=== PATIENT | male | born 1955 | race Caucasian/White ===

== ENCOUNTER 2017-10-22 16:59 | Emergency (ER) | payer SELFPAY ==
[~2017-10-22] VITALS: Ht 177.8 cm; Wt 90.7 kg
[~2017-10-22 16:59] MED LIST: AMLO10TA2 PO; ATOR80TA PO; CLOP75TA15 PO; ISOS30TA6 PO; LISI-607 PO; METO100T14 PO; PANT20TA2 PO; RANO500T3 PO
[2017-10-22] MEDS ORDERED: ALBUTEROL FS 2.5 MG/3 ML VIAL.NEB NEB ONE (17:30)
[2017-10-22] MEDS ORDERED: IPRATROPIUM NEB FS 0.5 MG/2.5 ML AMPUL.NEB NEB ONE (17:30)
[2017-10-22] MEDS ORDERED: ALBUTEROL FS 2.5 MG/3 ML VIAL.NEB ONE ×2 (17:33→17:50)
[2017-10-22] MEDS ORDERED: IPRATROPIUM NEB FS 0.5 MG/2.5 ML AMPUL.NEB ONE (17:33)
[2017-10-22 17:36] LABS: BASOPHILS # (AUTO) 0.2 /CMM (0.0-0.2); EOSINOPHILS # (AUTO) 0.1 /CMM (0.0-0.7); EOSINOPHILS % (AUTO) 0.7 % (0.0-6.0); MONOCYTES # (AUTO) 1.7 /CMM (0.1-1.30); MONOCYTES % (AUTO) 10.1 % (2.0-12.0)
[2017-10-22 17:38] LABS: BASOPHILS % (AUTO) 1.5 % (0.0-2.0); HEMATOCRIT 47 % (39-51); LYMPHOCYTES # (AUTO) 2.4 /CMM (0.8-4.8); LYMPHOCYTES % (AUTO) 14.7 % (20.0-44.0); MEAN CORPUSCULAR HEMOGLOBIN 29 PG (26.0-33.0); MEAN CORPUSCULAR HGB CONC 34 g/dl (31.0-36.0); MEAN CORPUSCULAR VOLUME 85 fL (80-96); NEUTROPHILS # (AUTO) 12.2 /CMM (1.8-8.9); PLATELET COUNT (AUTO) 281 /CMM (150-450); RDW COEFFICIENT OF VARIATION 13.2 (11.5-15.0); RED BLOOD CELL COUNT(AUTO) 5.52 MIL/uL (4.5-6.0); WHITE BLOOD COUNT (AUTO) 16.6 K/uL (4.3-11.0)
[2017-10-22 17:48] LABS: CALCIUM, SERUM 9.1 mg/dL (8.5-10.1); CARBON DIOXIDE 24 mmol/L (21-32); CHLORIDE 100 mmol/L (98-107); GLUCOSE 106 mg/dL (74-106); POTASSIUM 3.6 mmol/L (3.5-5.1); SODIUM SERUM 136 mmol/L (136-145); UREA NITROGEN, BLOOD 12 mg/dL (7-18)
[2017-10-22 17:53] LABS: TROPONIN I < 0.017 ng/mL (0.00-0.056)
[2017-10-22 18:00] LABS: B-TYPE NATRIURETIC PEPTIDE 121 PG/ML (0-125)
[2017-10-22] MEDS ORDERED: ALBUTEROL FS 2.5 MG/0.5 ML VIAL.NEB NEB ONE (18:00)
[2017-10-22 19:19] VITALS: BP 138/82
--- NOTE | 2017-10-22 19:25 | NUR ---
Patient discharged to home in stable condition. Written and verbal after care instructions given. Patient verbalizes understanding of instruction. Prescription given.
== END 2017-10-22 19:25 | disposition home or self-care (01) ==
LOC: ER 17:00
DX: J06.9 Acute upper respiratory infection, unspecified (principal); J45.909 Unspecified asthma, uncomplicated; I10 Essential (primary) hypertension; I25.10 Atherosclerotic heart disease of native coronary artery without angina pectoris; I25.2 Old myocardial infarction; F17.200 Nicotine dependence, unspecified, uncomplicated; J44.9 Chronic obstructive pulmonary disease, unspecified; Z87.19 Personal history of other diseases of the digestive system; Z95.5 Presence of coronary angioplasty implant and graft
CPT/HCPCS: 36415; 71045; 80048; 83880; 84484; 85025; 94640 ×2; 99285; 99406; A4606; Z7610

== ENCOUNTER 2019-07-20 12:32 | Inpatient (IN) | payer OTHER ==
[~2019-07-20] VITALS: Ht 177.8 cm; Wt 77.1 kg
[~2019-07-20 12:32] MED LIST changes: -AMLO10TA2 PO; +AMLO10TA7 PO
--- NOTE | 2019-07-20 12:52 | NUR ---
sudden SOB this morning; BB son to ER today
--- NOTE | 2019-07-20 13:18 | NUR ---
seen by BERT crews; labs drawn and sent to labs
[2019-07-20] MEDS ORDERED: methylPREDNISolone SOD SUCC 125 MG/2ML VIAL ONE (13:23)
--- NOTE | 2019-07-20 13:26 | NUR ---
solumedrol IVP given as ordered
[2019-07-20] MEDS ORDERED: ALBUTEROL FS 2.5 MG/3 ML VIAL.NEB ONE (13:29)
[2019-07-20] MEDS ORDERED: IPRATROPIUM NEB FS 0.5 MG/2.5 ML AMPUL.NEB ONE (13:29)
[2019-07-20] MEDS ORDERED: methylPREDNISolone SOD SUCC 125 MG/2ML VIAL IV ONE (13:30)
[2019-07-20] MEDS ORDERED: IPRATROPIUM NEB FS 0.5 MG/2.5 ML AMPUL.NEB NEB ONE (13:30)
[2019-07-20] MEDS ORDERED: ALBUTEROL FS 2.5 MG/3 ML VIAL.NEB CONTNEB ONE (13:30)
[2019-07-20 13:42] LABS: BASOPHILS # (AUTO) 0.1 /CMM (0.0-0.2); BASOPHILS % (AUTO) 1.3 % (0.0-2.0); HEMATOCRIT 46 % (39-51); HEMOGLOBIN 15.5 g/dL (13.5-17.5); LYMPHOCYTES # (AUTO) 2.1 /CMM (0.8-4.8); LYMPHOCYTES % (AUTO) 27.1 % (20.0-44.0); MEAN CORPUSCULAR HGB CONC 34 g/dl (31.0-36.0); MEAN CORPUSCULAR VOLUME 87 fL (80-96); MONOCYTES # (AUTO) 0.6 /CMM (0.1-1.30); MONOCYTES % (AUTO) 7.6 % (2.0-12.0); NEUTROPHILS # (AUTO) 4.8 /CMM (1.8-8.9); PLATELET COUNT (AUTO) 181 /CMM (150-450); RED BLOOD CELL COUNT(AUTO) 5.21 MIL/uL (4.5-6.0); WHITE BLOOD COUNT (AUTO) 7.8 K/uL (4.3-11.0)
[2019-07-20 13:55] LABS: CARBON DIOXIDE 25 mmol/L (21-32); CHLORIDE 101 mmol/L (98-107); CREATININE 0.9 mg/dL (0.6-1.3); GLUCOSE 101 mg/dL (74-106); POTASSIUM 3.9 mmol/L (3.5-5.1); SODIUM SERUM 136 mmol/L (136-145); UREA NITROGEN, BLOOD 13 mg/dL (7-18)
[2019-07-20 14:07] LABS: ALANINE AMINOTRANSFERASE 58 U/L (12-78); ALBUMIN 3.3 g/dL (3.4-5.0); ALKALINE PHOSPHATASE 95 U/L (46-116); ASPARTATE AMINOTRANSFERASE 27 U/L (15-37); B-TYPE NATRIURETIC PEPTIDE 90 PG/ML (0-125); BILIRUBIN,DIRECT 0.1 mg/dL (0.0-0.2); BILIRUBIN,TOTAL 0.5 mg/dL (0.2-1.0); TOTAL PROTEIN, SERUM 7.5 g/dL (6.4-8.2)
[2019-07-20] MEDS ORDERED: NITROGLYCERIN 0.4 MG/TAB BOTTLE ONE (14:20)
[2019-07-20] MEDS ORDERED: NITROGLYCERIN 0.4 MG/TAB BOTTLE SL ONE ×2 (14:30→15:30)
--- NOTE | 2019-07-20 15:17 | NUR ---
2nd sublingual nitro stat medication given
[2019-07-20] MEDS: ASPIRIN 325 MG TABLET PO ONE ×2 (16:00→16:28)
[2019-07-20] MEDS ORDERED: ASPIRIN 325 MG TABLET ONE (16:22)
[2019-07-20 16:26] LABS: ABG BASE EXCESS -1.3 mmol/L; ABG OXYGEN SATURATION 44.6 % (92.0-98.5); ABG PCO2 46.5 mmHg (35.0-45.0); ABG PH 7.345 (7.350-7.450); ABG PO2 25.7 mmHg (75.0-100.0); COHb 1.9 % (0.5-1.5); MetHb 0.3 % (0.0-1.5); O2Hb 43.6 % (94.0-97.0); SITE, ABG Right Brachial; VENT MODE, BG NC 1L
[2019-07-20] MEDS ORDERED: MAG HYDROX/AL HYDROX/SIMETH 30 ML UDC PO ONE (17:00)
[2019-07-20] MEDS ORDERED: LIDOCAINE VISCOUS 2% UD 15 ML UDC MM ONE (17:00)
[2019-07-20] MEDS ORDERED: LIDOCAINE VISCOUS 2% UD 15 ML UDC ONE (17:06)
[2019-07-20] MEDS ORDERED: MAG HYDROX/AL HYDROX/SIMETH 30 ML UDC ONE (17:06)
--- NOTE | 2019-07-20 18:53 | NUR ---
NURSING SUP GAVE BED 313-2.
--- NOTE | 2019-07-20 19:39 | NUR ---
Alise khan in ED - 07/20/19 at 1940 by RADHA report given to matias
--- NOTE | 2019-07-20 19:52 | NUR ---
MS RN NOTE RECEIVED REPORT FROM SOLITARIO ZAMBRANO AWAITING PT ARRIVAL.
[2019-07-20 20:00] VITALS: BP 114/63
--- NOTE | 2019-07-20 20:10 | NUR ---
MS RN NOTE PT ARRIVED TO FLOOR VIA GURNEY ACCOMPANIED BY ER STAFF AND JED (SON). PT RECEIVED IN STABLE CONDITION A/O X4, NORTHER[place] IRISH SPEAKING, SON TO TRANSLATE. TELE MONITOR-SR 89. NO SIGNS OF SOB OR DISTRESS, NO C/O CP, N/V. IV ON R HAND #[address]ACE AND INTACT. ALL CURRENT NEEDS ATTENDED TO. BED LOW, LOCKED, UPPER RAILS UP, AND CALL LIGHT WITHIN REACH. WILL CONT. TO MONITOR. PT BODY ASSESSED, AND BELONGINGS ACCOUNTED AND SIGNED FOR. DR. BOYD PAGED FOR ADMISSION ORDERS. AWAITING RETURN CALL.
--- NOTE | 2019-07-20 20:18 | NUR ---
PT TRANSFERRED TO TELE PER ACLS PROTOCOL.
--- NOTE | 2019-07-20 20:20 | NUR ---
STATUARY PAINTER NOTE RECEIVED TELEPHONE ORDER FROM DR BOYD, NEW ORDERS NOTED AND CARRIED OUT.
[2019-07-20] MEDS ORDERED: IPRATROPIUM NEB FS 0.5 MG/2.5 ML AMPUL.NEB NEB PRN (21:00)
[2019-07-20] MEDS ORDERED: ALBUTEROL FS 2.5 MG/3 ML VIAL.NEB NEB PRN (21:00)
[2019-07-20] MEDS ORDERED: LEVOFLOXACIN (500MG) 500 MG TABLET PO SCH (22:30)
[2019-07-20] MEDS: methylPREDNISolone SOD SUCC 40 MG/ML VIAL IV SCH (23:20)
[2019-07-21] VITALS: BP 127/64
[2019-07-21 04:00] VITALS: BP 123/59
[2019-07-21 04:35] VITALS: BP 123/59
--- NOTE | 2019-07-21 06:14 | NUR ---
MS RN NOTE PT REMAINS IN STABLE CONDITION A/O X4, YI SPEAKING, CURRENTLY RESTING IN BED. TELE MONITOR-SR 84. NO SIGNS OF SOB OR DISTRESS, NO C/O CP, N/V. IV ON R HAND #22 AND R AC IN PLACE AND INTACT. ALL CURRENT NEEDS ATTENDED TO. BED LOW, LOCKED, UPPER RAILS UP, AND CALL LIGHT WITHIN REACH. WILL CONT. TO MONITOR AND ENDORSE TO NEXT SHIFT FOR ADELINA.
--- NOTE | 2019-07-21 07:20 | NUR ---
FABRIC WORKER FITTER OPENING NOTES RECEIVED PATIENT IN BED AWAKE. A/O X 4. SERBIAN SPEAKING, PT CAN SPEAK A LITTLE LUXEMBOURGISH. PT TOLERATING RA, WITH NO ACUTE RESPIRATORY DISTRESS NOTED. PT ATATED ON AND OFF PAIN FOR LEFT CHEST 2/10, NO RADIATING PAIN. WILL NOTIFY SCRAP DEALER TODAY, PT AWARE OF PLAN. ON TELE MONITORING WITH SR WITH HR OF 97. PIV R HAND G22 AND RAC G22 SL, BOTH FLUSHED WITH NS, INTACT AND OPERATIONAL. PT KEPT COMFORTABLE. SAFETY MEASURES IN PLACE, BED IN LOWEST, LOCKED POSITION WITH SIDE RAILS UP X 2. CALL LIGHT KEPT WITHIN REACH. WILL CONTINUE PLAN OD CARE.
[2019-07-21 07:25] LABS: BASOPHILS % (AUTO) 0.2 % (0.0-2.0); HEMATOCRIT 47 % (39-51); HEMOGLOBIN 15.9 g/dL (13.5-17.5); LYMPHOCYTES # (AUTO) 1.3 /CMM (0.8-4.8); LYMPHOCYTES % (AUTO) 11.9 % (20.0-44.0); MEAN CORPUSCULAR HGB CONC 34 g/dl (31.0-36.0); MEAN CORPUSCULAR VOLUME 86 fL (80-96); MONOCYTES # (AUTO) 0.4 /CMM (0.1-1.30); MONOCYTES % (AUTO) 3.5 % (2.0-12.0); NEUTROPHILS # (AUTO) 9.1 /CMM (1.8-8.9); NEUTROPHILS % (AUTO) 84.4 % (43.0-81.0); PLATELET COUNT (AUTO) 197 /CMM (150-450); RED BLOOD CELL COUNT(AUTO) 5.44 MIL/uL (4.5-6.0); WHITE BLOOD COUNT (AUTO) 10.8 K/uL (4.3-11.0)
[2019-07-21 07:35] LABS: CALCIUM, SERUM 8.9 mg/dL (8.5-10.1); CREATININE 0.9 mg/dL (0.6-1.3)
[2019-07-21 08:00] VITALS: BP 124/72
[2019-07-21] MEDS: methylPREDNISolone SOD SUCC 40 MG/ML VIAL IV SCH ×3 (09:15→16:56)
[2019-07-21] MEDS: ASPIRIN EC 81 MG TABLET.DR PO SCH (09:32)
[2019-07-21] MEDS ORDERED: TIOT4MIS5 IH (09:48)
[2019-07-21] MEDS ORDERED: METO50TA16 PO (09:48)
[2019-07-21] MEDS ORDERED: COLC0.6C PO (09:48)
[2019-07-21] MEDS ORDERED: ERGO500040 PO (09:48)
[2019-07-21] MEDS ORDERED: FLUT1DIS IH (09:48)
[2019-07-21] MEDS: HEPARIN SODIUM, PORCINE 5000 UNITS/1 ML VIAL SQ SCH ×2 (10:22→21:15)
--- NOTE | 2019-07-21 11:42 | NUR ---
SPOKE WITH JACQUELINE SHEA. NO RN SALES DIRECTOR OR AVAILABLE. TO BE ATTEMPTED TOMORROW. SPOKE WITH FLOOR RN MAY AND NOTIFIED.
--- NOTE | 2019-07-21 11:45 | NUR ---
MS RN NOTES DR BOYD CAME AND EVALUATED PT. ORDERED CTA FOR PT, BUT RECEIVED A CALL FROM CT DEPT THAT NO RN IS AVAILABLE FOR CTA TO BE DONE TODAY. DR BOYD STILL ON THE UNIT AND MADE AWARE. PT AND FAMILY MADE AWARE OF THE SCHEDULE CHANGES OF CTA. LORENA/JERSON WAS INFORMED WELL.
[2019-07-21] MEDS: NICOTINE PATCH (21MG) 21 MG PATCH.TD24 TD SCH (11:50)
[2019-07-21 16:00] VITALS: BP 128/73
--- NOTE | 2019-07-21 18:59 | NUR ---
MS RN CLOSING NOTES PATIENT IN BED AWAKE. A/O X 4. TRINIDADIAN SPEAKING, PT CAN SPEAK A LITTLE LATVIAN. PT TOLERATING RA, WITH NO ACUTE RESPIRATORY DISTRESS NOTED. PT DENIES ANY PAIN OR DISCOMFORT AT THIS TIME. PIV R HAND G22 SL, FLUSHED WITH NS, INTACT AND OPERATIONAL. PT KEPT COMFORTABLE. SAFETY MEASURES IN PLACE, BED IN LOWEST, LOCKED POSITION WITH SIDE RAILS UP X 2. CALL LIGHT KEPT WITHIN REACH. WILL ENDORSE TO INCOMING NIGHT NURSE FOR ADELINA.
[2019-07-21 20:00] VITALS: BP 128/77
--- NOTE | 2019-07-21 20:00 | NUR ---
MS RN NOTES RECEIVED PATIENT AWAKE IN BED WITH NO DISTRESS NOTED. CALL LIGHT WITHIN REACH. DTR AT BEDSIDE. PERIPHERAL LINE INTACT AND PATENT. NO C/O PAIN OR DISCOMFORT. ENCOURAGED USE OF CALL LIGHT FOR ASSISTANCE AND VERBALIZED GOOD UNDERSTANDING. ROOM FREE OF CLUTTER AND BELONGINGS KEPT NEAR BEDSIDE. WILL CONTINUE TO MONITOR.
[2019-07-21] MEDS ORDERED: METOPROLOL TARTRATE 25 MG TABLET PO SCH ×2 (21:00)
[2019-07-21] MEDS: LEVOFLOXACIN (250MG) 250 MG TABLET PO SCH (21:16)
--- NOTE | 2019-07-21 22:23 | NUR ---
SPOKE WITH DR. BOYD RE: TROPONIN 0.823 WITH NO NEW ORDERS. PATIENT IN STABLE CONDITION. VITALS WNL. NO C/O CHEST PAIN OR DISCOMFORT. CTA SCHEDULED FOR TOMORROW PREVIOUSLY ORDERED.
--- NOTE | 2019-07-22 06:30 | NUR ---
MS RN NOTES RECEIVED PATIENT AWAKE IN BED WITH NO DISTRESS NOTED. CALL LIGHT WITHIN REACH. ALL DUE MEDS GIVEN ORDERED WITH NO ASE NOTED. PERIPHERAL LINE INTACT AND PATENT. NO C/O PAIN OR DISCOMFORT. NPO STATUS SINCE 2AM MAINTAINED FOR SCHEDULED CTA. ROOM FREE OF CLUTTER AND BELONGINGS KEPT NEAR BEDSIDE. WILL CONTINUE TO MONITOR.
[2019-07-22 07:12] LABS: BASOPHILS % (AUTO) 0.1 % (0.0-2.0); HEMATOCRIT 48 % (39-51); HEMOGLOBIN 16.3 g/dL (13.5-17.5); LYMPHOCYTES # (AUTO) 1.9 /CMM (0.8-4.8); LYMPHOCYTES % (AUTO) 12.1 % (20.0-44.0); MEAN CORPUSCULAR HGB CONC 34 g/dl (31.0-36.0); MEAN CORPUSCULAR VOLUME 87 fL (80-96); MONOCYTES # (AUTO) 0.9 /CMM (0.1-1.30); MONOCYTES % (AUTO) 5.5 % (2.0-12.0); NEUTROPHILS # (AUTO) 12.9 /CMM (1.8-8.9); NEUTROPHILS % (AUTO) 82.3 % (43.0-81.0); PLATELET COUNT (AUTO) 229 /CMM (150-450); RED BLOOD CELL COUNT(AUTO) 5.57 MIL/uL (4.5-6.0); WHITE BLOOD COUNT (AUTO) 15.7 K/uL (4.3-11.0)
[2019-07-22 07:13] LABS: CALCIUM, SERUM 9.4 mg/dL (8.5-10.1); CREATININE 0.9 mg/dL (0.6-1.3); POTASSIUM 4.4 mmol/L (3.5-5.1)
[2019-07-22 08:00] VITALS: BP 136/86
--- NOTE | 2019-07-22 08:00 | NUR ---
rn notes RECEIVED PATIENT IN THE BED A/O X3 PUERTO RICAN SPEAKER MALE ON DX ON CHEST PAIN. PATIENT COUGHING WITH LIGHT SPUTUM, SMOKER, REFUSED CHEST PAIN BUT ON RIGHT NECK AND CHEST FEEL UNCOMFORTABLENESS. GET CALL FROM LAB FOR T-0.502. PATIENT AMBULATORY SELF CARE, V/S TAKEN WNL. ADMINISTERED SCHEDULED MEDICATION, IV ACCESS ON RIGHT HAND INTACT. CALL LIGHT WITHIN TO REACH. SAFETY PRECAUTION MAINTAINED ALL THE TIME.
[2019-07-22] MEDS: NICOTINE PATCH (21MG) 21 MG PATCH.TD24 TD SCH ×2 (08:49→08:52)
[2019-07-22] MEDS: methylPREDNISolone SOD SUCC 40 MG/ML VIAL IV SCH ×3 (08:50→17:46)
[2019-07-22] MEDS: ASPIRIN EC 81 MG TABLET.DR PO SCH (08:53)
[2019-07-22] MEDS ORDERED: ATORVASTATIN 40 MG TABLET PO SCH (09:00)
[2019-07-22] MEDS ORDERED: LISINOPRIL (5MG) 5 MG TABLET PO SCH ×2 (09:00)
[2019-07-22] MEDS ORDERED: FLUTICASONE/VILANTEROL 1 EACH BLST.W.DEV IH SCH (09:00)
[2019-07-22] MEDS ORDERED: CLOPIDOGREL BISULFATE 75 MG TABLET PO SCH (09:00)
--- NOTE | 2019-07-22 09:00 | NUR ---
RN NOTES dR SPEAR HOSPITALIST AWARE OF ELEVATED TROPONIN LEVEL, PER HOSPITALIST PATIENT WILL D/C transferred to higher level of care to get [facility]. Patient does not want to take aspirin since that gives his "stomach ulcers". He is on plavix. CASE MANAGEMENT AWARE OF FOR TRANSPORTATION TO TRANSFER PATIENT. CONTINUED MONITORING.
[2019-07-22] MEDS: HEPARIN SODIUM, PORCINE 5000 UNITS/1 ML VIAL SQ SCH (09:05)
[2019-07-22] MEDS: METOPROLOL TARTRATE 50 MG TABLET PO SCH ×2 (10:32→17:45)
--- NOTE | 2019-07-22 14:37 | NUR ---
RN NOTES PATIENT IN THE BED NO ACUTE RESPIRATORY DISTRESS, SCHEDULED MEDICATION ADMINISTERED, PATIENT REFUSED PAIN AT THIS TIME. WAITING FOR INSURANCE GROUP AUTHORIZATION OF TRANSFER [facility]. NEXT TO THE BED. CALL LIGHT WITHIN TO REACH. CONTINUED MONITORING.
[2019-07-22 16:00] VITALS: BP 148/90
[2019-07-22] MEDS ORDERED: HEPARIN INFUSION/D5W 500 ML IV PRN (18:30)
--- NOTE | 2019-07-22 18:40 | NUR ---
rn notes Get TO order per hospitalist Dr Roa and get new order Heparin per protocol, because patient will transfer [facility], NPO midnight, and repeat PTT after 6hr heparin drip started. Order taken and carried out. endorsed oncoming nurse follow plan of care.
--- NOTE | 2019-07-22 20:00 | NUR ---
MS RN NOTES RECEIVED PATIENT AWAKE IN BED WITH NO DISTRESS NOTED. CALL LIGHT WITHIN REACH. SON AT BEDSIDE. NO C/O PAIN OR DISCOMFORT. PERIPHERAL LINE INTACT AND PATENT. ROOM FREE OF CLUTTER AND BELONGINGS KEPT NEAR PATIENT. WILL CONTINUE TO MONITOR.
--- NOTE | 2019-07-22 20:10 | NUR ---
REPORT GIVEN TO DIANE BERMUDEZ AT [facility].
[2019-07-22 20:16] VITALS: BP 153/91
[2019-07-22] MEDS ORDERED: HEPARIN SODIUM, PORCINE 5000 UNITS/1 ML VIAL IV ONE (20:30)
--- NOTE | 2019-07-22 20:30 | NUR ---
HEPARIN INFUSION STARTED AT 1200U/HR (24ML/HR). WILL CONTINUE TO MONITOR
--- NOTE | 2019-07-22 21:00 | NUR ---
SALVADOR CARLTON ARRIVED BUT UNABLE TO DRAWING KILN SUPERVISOR PATIENT D/T HEPARIN INFUSION ONGOING. UNABLE TO TAKE PATIENT VIA BLS. CALLED [facility] CM/COORDINATOR, FEBRUARY, AND REQUESTED FOR CCT TRANSPORTATION. [facility]AL CM TO CALL BACK WITH NEW TRANSPORTATION AND DRAWING KILN SUPERVISOR TIME.
--- NOTE | 2019-07-22 22:00 | NUR ---
PER CYRIL SCREW MACHINE OPERATOR SWISS TYPE, SALVADOR CARLTON SCHEDULED TO BRUSH CLEARING LABORER PATIENT AT MIDNIGHT. PATIENT AND SON MADE AWARE AND VERBALIZED GOOD UNDERSTANDING.
[2019-07-22] MEDS: LEVOFLOXACIN (250MG) 250 MG TABLET PO SCH (22:01)
--- NOTE | 2019-07-23 01:00 | NUR ---
PATIENT PICKED UP BY SALVADOR VIA CCT PROTOCOL. PATIENT TAKEN VIA GURNEY IN STABLE CONDITION. PERIPHERAL LINES INTACT AND PATENT. HEPARIN DRIP INFUSING AND TOLERATING WELL. VITALS WNL. NO C/O PAIN OR DISCOMFORT. PATIENT ACCOMPANIED BY GENO BONDS. DC PAPER WORK GIVEN TO AIME CARLTON RN. ALL BELONGINGS TAKEN WITH PATIENT.
[2019-07-26] MEDS ORDERED: ERGOCALCIFEROL (VITAMIN D 2) 50,000 UNIT CAPSULE PO SCH (09:00)
== END 2019-07-23 01:00 | disposition short-term general hospital (02) | DRG 190 ==
LOC: ER 12:36 → TELE 20:05 → MED 07-21 09:10
PROVIDERS: ADMIT Hospitalist; ATTEND Internal Medicine
DX: I21.4 Non-ST elevation (NSTEMI) myocardial infarction (principal); E44.1 Mild protein-calorie malnutrition; Z95.1 Presence of aortocoronary bypass graft; J44.1 Chronic obstructive pulmonary disease with (acute) exacerbation; F17.210 Nicotine dependence, cigarettes, uncomplicated; I25.10 Atherosclerotic heart disease of native coronary artery without angina pectoris; Z82.49 Family history of ischemic heart disease and other diseases of the circulatory system; Z83.3 Family history of diabetes mellitus; Z95.5 Presence of coronary angioplasty implant and graft; I10 Essential (primary) hypertension; E88.09 Other disorders of plasma-protein metabolism, not elsewhere classified; Z68.24 Body mass index [BMI] 24.0-24.9, adult; Z87.11 Personal history of peptic ulcer disease
CPT/HCPCS: 36415; 36600; 71045-TC; 80048-TC; 80061-TC; 80076-TC; 83880; 84484-TC; 85025-TC; 85730-TC; 87081-TC; 93307-TC; G0378; J1644; J2920; J2930

== ENCOUNTER 2019-08-07 01:42 | Inpatient (IN) | payer OTHER ==
[2019-08-07] VITALS (58 sets, daily range): BP systolic 43–167; BP diastolic 20–112
[~2019-08-07] VITALS: Ht 177.8 cm; Wt 92.5 kg
[~2019-08-07 01:42] MED LIST changes: -AMLO10TA7 PO; +COLC0.6C PO; +ERGO500040 PO; +FLUT1DIS IH; -ISOS30TA6 PO; -METO100T14 PO; +METO50TA16 PO; -RANO500T3 PO; +TIOT4MIS5 IH
[2019-08-07] MEDS ORDERED: IV NS 0.9% 500 ML BAG IV ONE ×2 (02:00→04:30)
[2019-08-07] MEDS ORDERED: ONDANSETRON HCL/PF 4 MG/2 ML VIAL IVP ONE (02:00)
--- NOTE | 2019-08-07 02:00 | NUR ---
YVROSE FROM HOME TO ER BED 9. AAOX3. SPEAKS IN ITALIAN, TICKETING CLERK AT BEDSIDE TO TRANSLATE. BREATHING RAPID AND SHALLOW. PT WAS BROUGHT IN FOR SOB AND SYNCOPAL EPISODE. PER EMS REPORT, PT WAS FEELING SOB AND TOOK A SPRAY OF NITROGLYCERIN, HE THEN WENT TO THE BATHROOM, FELT DIZZY AND HAD AN NEAR SCONCOPAL EPISODE. UPON ARRIVAL OF SON AT BEDSIDE, SON REPORTED THAT HE TOOK HIS REGULAR MEIDCATIONS FOR THE EVENING WHEN TO THE BATHROOM, HAD A SYNCOPAL EPISODE, FELL HOWEVER CANNOT VERIFY IF PT HIT HIS HEAD BUT ASSUME HE DID BECAUSE HE WAS AT THE FLOOR. PT HAS HX OF CABG X 2 DAYS AGO. NOTED PURPLISH DISCOLORATION ON BILAT ARM WITH SURGICAL INCISION WHICH ARE WNL, NO S/S OF INFECTION. WAS AT BEDSIDE FOR EVAL. ORDERS RECEIVED NOTED AND CARRIED OUT. IV LINE OBATAINED ON THE LEFT HAND W/ 20, BLOOD DRAWN AND GIVEN TO INDEPENDENT TRADER AT BEDSIDE. EKG AND XRAY DONE AT BEDSIDE. PT ON MONITOR, WILL CONTINUE TO MONITOR PT
[2019-08-07 02:32] LABS: BASOPHILS # (AUTO) 0.1 /CMM (0.0-0.2); EOSINOPHILS % (AUTO) 0.6 % (0.0-6.0); HEMATOCRIT 25 % (39-51); HEMOGLOBIN 7.8 g/dL (13.5-17.5); LYMPHOCYTES # (AUTO) 1.6 /CMM (0.8-4.8); LYMPHOCYTES % (AUTO) 14.8 % (20.0-44.0); MEAN CORPUSCULAR HGB CONC 32 g/dl (31.0-36.0); MEAN CORPUSCULAR VOLUME 93 fL (80-96); MONOCYTES # (AUTO) 0.6 /CMM (0.1-1.30); MONOCYTES % (AUTO) 5.9 % (2.0-12.0); NEUTROPHILS # (AUTO) 8.6 /CMM (1.8-8.9); NEUTROPHILS % (AUTO) 77.7 % (43.0-81.0); PLATELET COUNT (AUTO) 350 /CMM (150-450); RED BLOOD CELL COUNT(AUTO) 2.62 MIL/uL (4.5-6.0)
[2019-08-07 02:44] LABS: CALCIUM, SERUM 8.1 mg/dL (8.5-10.1); CREATININE 1.2 mg/dL (0.6-1.3); POTASSIUM 4.3 mmol/L (3.5-5.1)
--- NOTE | 2019-08-07 02:44 | NUR ---
XRAY AT BEDSIDE
[2019-08-07 02:56] LABS: ALBUMIN 2.4 g/dL (3.4-5.0); BILIRUBIN,DIRECT 0.2 mg/dL (0.0-0.2); BILIRUBIN,TOTAL 0.9 mg/dL (0.2-1.0); TOTAL PROTEIN, SERUM 6.2 g/dL (6.4-8.2)
[2019-08-07 03:10] LABS: D-DIMER 9.43 mg/L(FEU (0.17-0.50)
[2019-08-07] MEDS ORDERED: ONDANSETRON HCL/PF 4 MG/2 ML VIAL ONE (03:17)
--- NOTE | 2019-08-07 03:22 | NUR ---
VERBAL ORDER RECEIVED TO GIVE ANOTHER 500ML NS BOLUS WIDE OPEN. ORDER NOTED AND CARRIED OUT
--- NOTE | 2019-08-07 03:29 | NUR ---
DR. MEJIA ON THE PHONE WITH DR. COSTA VALDIVIA CARDIOTHORACIC SURGEON FROM [facility]
--- NOTE | 2019-08-07 04:14 | NUR ---
ER TALKING TO [facility] DISEASE MANAGEMENT NURSE REGARDING PT.
[2019-08-07] MEDS ORDERED: AMIO200T4 PO (04:23)
[2019-08-07] MEDS ORDERED: ASPI-605 PO (04:23)
--- NOTE | 2019-08-07 04:33 | NUR ---
JED (SON) CONTACT INFORMATION: [phone]
--- NOTE | 2019-08-07 04:49 | NUR ---
PT HAD A BOWEL MOVEMENT. NOTED BLACK STOOL WITH BLOOD CLOTS. MADE AWARE. COLLECTED STOOL SMEAR FOR OB TESTING. SPECIMEN SENT TO STAT LAB
[2019-08-07] MEDS ORDERED: PANTOPRAZOLE 40 MG VIAL ONE (05:07)
[2019-08-07] MEDS ORDERED: PANTOPRAZOLE 80 MG in IV NS 0.9% 500 ML IV ONE (05:30)
[2019-08-07] MEDS ORDERED: PANTOPRAZOLE 40 MG VIAL IV SCH ×2 (05:30→18:30)
[2019-08-07] MEDS ORDERED: SORBITOL SOLUTION 30 ML PO ONE (06:00)
--- NOTE | 2019-08-07 06:00 | NUR ---
PT NOTED WITH BP OF 83/49. MD MADE AWARE. CONTACTED DR. BOYD, AWAITING CALL BACK FOR FURTHER ORDERS. NAD, BREATHING EVEN AND UNLABORED.
--- NOTE | 2019-08-07 06:11 | NUR ---
MD REACHED OVER THE PHONE. MD AWARE OF LOW BP OF 84/49. RECEIVED ORDER TO GIVE 500ML NS BOLUS AND GIVE BLOOD STAT UPON AVAILABILITY. ORDERS NOTED AND CARRIED OUT.
--- NOTE | 2019-08-07 06:11 | NUR ---
PER DR. BOYD, PT WILL BE UPGRADED TO AN ICU BED. CALLED NURSING SUP FOR BED, NOT AVAILABLE UNTIL AFTER CHANGE OF SHIFT.
[2019-08-07] MEDS ORDERED: IPRATROPIUM NEB FS 0.5 MG/2.5 ML AMPUL.NEB NEB PRN (06:30)
[2019-08-07] MEDS ORDERED: ALBUTEROL FS 2.5 MG/0.5 ML VIAL.NEB NEB PRN (06:30)
[2019-08-07 06:36] LABS: OCCULT BLOOD STOOL NEGATIVE (NEGATIVE)
--- NOTE | 2019-08-07 06:41 | NUR ---
PT HAD A SECOND BM W/ NOTED BLOOD IN THE STOOL. MADE AWARE. CALLED BLOOD BANK FOR BLOOD STATUS, BLOOD WILL BE READY IN 20 MINS
--- NOTE | 2019-08-07 06:41 | NUR ---
UPON CALLING LAB, ASKED FOR THE BLOOD TO BE STAT D/T PT HAVE AN ACTIVE BLEEDING AND PT IS HYPOTENSIVE. BLOOD WILL BE READY IN 20MIN
--- NOTE | 2019-08-07 06:50 | NUR ---
PT SIGNED BLOOD CONSENT, DIANE DIETZ AT BEDSIDE FOR TRANSLATION
--- NOTE | 2019-08-07 06:55 | NUR ---
ROOM NUMBER: [id number] PER NURSING SUP GIVE REPORT AFTER 07H
--- NOTE | 2019-08-07 07:12 | NUR ---
WALKED TO BLOOD BANK TO TREASURY ACCOUNTANT BLOOD PER MD ORDER EVEN THOUGHT ITS NOT READY. UPON ARRIVAL, PT HAVE POSITIVE ANTIBODY SCREENED. MD MADE AWARE. AND OK TO WAIT UNTIL BLOOD IS READY.
--- NOTE | 2019-08-07 07:34 | NUR ---
REPORT GIVEN TO DIAEN WILLIAMSON FOR ADELINA.
--- NOTE | 2019-08-07 07:52 | NUR ---
PT TRANSPORTED TO UNIT ON [facility] W/ EMT AND RN AT BEDSIDE PER ACLS PROTOCOL. NAD NOTED DURING TRANSPORT
--- NOTE | 2019-08-07 08:00 | NUR ---
SUPERVISOR TYPE BAR AND SEGMENT NOTE: RECEIVED PATIENT IN ROOM 257 ACCOMPANIED BY 1 ER NURSE AND A TRANSPORT VIA STRETCHER. PATIENT WAS AWAKE, ALERT AND VERBALLY RESPONSIVE AND MOSTLY MALAY SPEAKING. A MALAY ICU NURSE WAS PRESENT IN THE UNIT AND WAS TRANSLATING FOR THE PATIENT. PATIENT WAS TRANSFERRED TO THE BED, MADE HIM COMFORTABLE. INTRODUCED SELF. COMPLETE BODY ASSESSMENT WAS DONE. TOOK PICTURES OF THE SKIN ISSUES AND FILED TO PATIENT'S CHART. AFEBRILE. SKIN WARM TO TOUCH. (L) HAND 20G IV SITE IN PLACED AND PER RUSSELL PERKINS NURSE PATIENT WAS A HARDSTICK. PATIENT WAS PALE UPON ADMISSION. PATIENT HAD 1 BM SOFT SEMI-FORMED WITH RED BLOOD AND CLOTS. PER REPORT FROM RUSSELL PERKINS NURSE PRIOR TO THE PATIENT'S TRANSFER TO ICU THE PATIENT HAD 1 BM OF THE SAME KIND. AND OCCULT BLOOD STOOL SHOWED NEGATIVE. PATIENT DENIED ANY PAIN INCLUDING CHEST PAIN. HOB ELEVATED. ATTACHED PATIENT TO THE WASH CREW PERSON SHOWED SR HR= 70 WITH LOW BP IN THE 80'S. DR. BOYD WAS IN THE UNIT AND AWARE OF THE PATIENT'S CURRENT SITUATION AND GAVE ADMISSION ORDERS. SONJED CAME AT THE UNIT WITH THE PATIENT'S . GAVE THEM AN UPDATE REGARDING THE PLAN FOR THE PATIENT AND FAMILY STAYED AT THE BEDSIDE. CALL LIGHT WITHIN REACH. NEEDS ANTICIPATED. WILL FOLLOW-UP THE BLOOD WITH BLOOD BANK WHEN IT'S READY.
--- NOTE | 2019-08-07 08:30 | NUR ---
RN NOTE: CALLED AND INFORMED DR. ELIAS REGARDING THE CONSULT FOR HIM. PER MD, HE WILL SEE THE PATIENT TODAY. JED, SON AT THE BEDSIDE WAS MADE AWARE.
[2019-08-07] MEDS: PANTOPRAZOLE 40 MG VIAL IV SCH ×3 (08:40→20:46)
--- NOTE | 2019-08-07 08:45 | NUR ---
RN NOTE: CALLED AND SPOKE WITH DR. BOYD AND CLARIFIED WITH HIM THE ORDERED IVF NS +KCL 10MEQ @100ML/HR. MD WAS INFORMED OF THE PATIENT'S POTASSIUM LEVEL 4.3 FOR TODAY. PER MD, CONTINUE WITH CURRENT IVF ORDER.
[2019-08-07] MEDS ORDERED: DOCU-141 PO (09:07)
[2019-08-07] MEDS ORDERED: HYDR-4384 PO (09:07)
[2019-08-07] MEDS ORDERED: TAMS-12 PO (09:07)
[2019-08-07] MEDS: Potassium Chloride 10 MEQ in IV NS 0.9% 1,000 ML IV PRN ×2 (09:25→20:48)
--- NOTE | 2019-08-07 09:35 | NUR ---
RN NOTE: DR. BOYD WAS INFORMED THAT ACCORDING TO BLOOD BANK LABORATORY PROFESSIONAL, THE PATIENT'S BLOOD WAS NOTED WITH ANTIBODIES AND ANOTHER SETS OF BLOOD DRAW REGARDING SPECIFIC ANTIBODIES NEEDED TO BE DRAWN. PATIENT AND SON JED MADE AWARE. DR. BOYD AWARE OF IT WELL.
[2019-08-07] MEDS: NOREPINEPHRINE 8 MG in IV D5W 500 ML IV PRN ×2 (09:40→20:46)
--- NOTE | 2019-08-07 09:40 | NUR ---
RN NOTE: PATIENT'S BP WAS STILL NOTED LOW AND INFORMED DR. BOYD ABOUT IT. LEVOPHED PER MD ORDER WAS STARTED WHILE AWAITING FOR THE IVF FROM THE PHARMACY.
--- NOTE | 2019-08-07 12:00 | NUR ---
RN NOTE: PATIENT REFUSED TO GET A BLOOD DRAW FOR THE REPEAT TROPONIN. EXPLAINED RISKS AND BENEFITS, BUT CONTINUED TO REFUSED. SON JED WAS PRESENT AT THE BEDSIDE.
--- NOTE | 2019-08-07 13:49 | NUR ---
TERESSA was informed by block and case maker Agnieszka that the family is requesting a verification of admission letter for the social security office. TERESSA typed letter and gave it to block and case maker Agnieszka to give to the family.
--- NOTE | 2019-08-07 14:30 | NUR ---
RN NOTE: FAXED THE REQUEST FOR THE MEDICAL RECORDS TO [facility] AND AWAITING FOR THE PAPERWORK TO BE SEND BACK. PATIENT'S SON JED WAS MADE AWARE.
[2019-08-07] MEDS ORDERED: LIDOCAINE HCL/PF 1% 30 ML SDV IJ STA (14:54)
--- NOTE | 2019-08-07 15:00 | NUR ---
RN NOTE: CALLED AND SPOKE WITH MYLENE FROM BLOOD BANK AND FOLLOWED UP REGARDING THE PATIENT'S BLOOD. PER MYLENE, NO REPORT YET FROM [facility] WAS RECEIVED. PATIENT AND SON JED WAS INFORMED.
--- NOTE | 2019-08-07 15:45 | NUR ---
RN NOTE: PETEY, PICC LINE NURSE CAME AND SPOKE WITH DR. BOYD OVER THE PHONE AND DISCUSSED WITH HIM THE RISKS AND BENEFITS OF GETTING PICC/MIDLINE FOR THE PATIENT DUE TO THE S/P CABG DONE RECENTLY ([address] BOYD, OK FOR A MIDLINE FOR NOW. AND PETEY PICC LINE/MIDLINE NURSE INSERTED A (R) UA MIDLINE 18G AND A (L) FOREARM 20G PERIPHERAL LINE.
--- NOTE | 2019-08-07 16:00 | NUR ---
RN NOTE: PATIENT HAD A LARGE AMOUNT OF BLOOD STOOL ON HIS DIAPER. GOOD PERICARE WAS RENDERED. PATIENT TOLERATED IT.
--- NOTE | 2019-08-07 16:26 | NUR ---
RN NOTE: RECEIVED A PHONE CALL FROM DR. ELIAS AND MADE HIM AWARE THAT THE PATIENT WAS STILL HAVING BLOODY STOOL AND BLOOD TRANSFUSION WAS STILL PENDING DUE TO THE ANTIBODIES. MD WITH ORDERS, NOTED AND CARRIED OUT.
[2019-08-07] MEDS: ONDANSETRON HCL/PF 4 MG/2 ML VIAL IV PRN (17:20)
[2019-08-07 17:24] LABS: HEMOGLOBIN 4.9 g/dL (13.5-17.5)
--- NOTE | 2019-08-07 17:45 | NUR ---
RN NOTE: PATIENT WAS NOTED BRADYCARDIA ON THE SURGICAL PATHOLOGIST 37-50'S BPM. PATIENT WAS PROFUSEDLY SWEATING, NOTED SHORT OF BREATH. CALLED LORENA CONTRERAS, AND MUSEUM EXHIBIT DESIGNER WAS CALLED. PATIENT BECAME HEMODYNAMICALLY UNSTABLE AND MICHEAL FUENTES WAS CALLED @[phone]. PLEASE SEE MICHEAL FUENTES PAPER FOR DETAILS.
[2019-08-07] MEDS ORDERED: PANTOPRAZOLE 80 MG in IV NS 0.9% 500 ML IV PRN (18:00)
[2019-08-07] MEDS ORDERED: EPOETIN ALFA (40,000 UNIT) 40,000 UNIT/ML VIAL IV ONE (18:00)
--- NOTE | 2019-08-07 18:10 | NUR ---
RT @ 1733- Pt had no pulse and CPR was initiated with manual ventilation via ambu bag. @ 1741- Pt was intubated by Dr. Almazan with 7.5 ET tube secured at 23cm. Pt had ROSC, pt was placed on mechanical ventilation with noted settings. Equal bilateral breathe sounds and chest rise noted. Vent alarms are set and audible with BVM by bedside. Addendum: 08/07/19 at 1827 by LENO KONG RT Amended: Links added.
--- NOTE | 2019-08-07 18:20 | NUR ---
RN NOTE: CALLED AND SPOKE WITH VAMSHI, DAUGHTER AND INFORMED HER ABOUT THE CURRENT SITUATION OF THE PATIENT. SHE WAS INFORMED THAT THE PATIENT WAS CURRENTLY GETTING CPR AND ER DOCTOR WAS GOING TO INTUBATE THE PATIENT. REQUESTED TO COME TO THE HOSPITAL FOR THE PATIENT WAS NOT DOING WELL. 4 UNITS OF PRBC WAS GIVEN THRU RAPID INFUSER RELEASED VIA EMERGENCY WAIVER FROM BLOOD BANK.
[2019-08-07] MEDS ORDERED: EPOETIN ALFA (20,000 UNIT) 20,000 UNIT/ML VIAL IV ONE (18:30)
--- NOTE | 2019-08-07 18:30 | NUR ---
RN NOTE: RECEIVED A PHONE CALL FROM ESTRELLA. PHARMACIST AND HE RECEIVED A TELEPHONE ORDER FROM DR. BOYD TO DC THE PROTONIX DRIP AND CHANGED TO IVP. PER ESTRELLA, PHARMACIST HE WILL CHANGE THE ORDER FOR IT.
--- NOTE | 2019-08-07 18:30 | NUR ---
RN NOTE: DR. GONZALEZ SPOKE WITH THE PATIENT'S DAUGHTER VAMSHI AND GAVE HER AN UPDATE AND ACCORDING TO HER THE PATIENT'S SON, JED WAS ON HIS WAY TO THE HOSPITAL. DR. GONZALEZ ALSO SPOKE WITH DR. BOYD REGARDING THE PATIENT'S CURRENT CONDITION.
[2019-08-07] MEDS ORDERED: ATROPINE SULFATE 1 MG/10 ML DISP.SYRIN IV ONE (18:51)
[2019-08-07] MEDS ORDERED: EPINEPHRINE (1:10,000) SYRINGE 1 MG/10 ML DISP.SYRIN IVP ONE (18:51)
--- NOTE | 2019-08-07 19:25 | NUR ---
RN NOTE: BEDSIDE REPORT WAS GIVEN TO PM SHIFT NURSE FOR CONTINUITY OF CARE. PATIENT WAS INTUBATED AND WAS RECEIVING THE IVF AND LEVOPHED PER MD ORDER. SEVERAL FAMILY MEMBERS WERE AT THE BEDSIDE. DR. BOYD AWARE OF THE PATIENT'S CURRENT CONDITION.
[2019-08-07] MEDS ORDERED: PHENYLEPHRINE 80 MG in IV D5W 250 ML IV PRN (19:30)
--- NOTE | 2019-08-07 19:59 | NUR ---
RECEIVED PT INTUBATED WITH 7.5 ETT SECURED AT 23CM AT THE LIP VIA ANCHOR FAST. AC 18, 550, 100%, +5. VENT ALARMS SET AND AUDIBLE. AMBU BAG AT BEDSIDE. VENT PLUGGED INTO RED OUTLET. CONTINUE [facility] VENT SUPPORT. Addendum: 08/07/19 at 2001 by MADDIE GAN RT Amended: Links added.
[2019-08-07] MEDS ORDERED: PEG 3350/NA SULF,BICARB,CL/KCL 4,000 ML BOTTLE PO ONE (20:00)
--- NOTE | 2019-08-07 20:30 | NUR ---
FINE ARTS MODEL NOTES SPOKE TO DR BOYD REGARDING CX RESULT. PER CX, ETT TIP IS 6CM ABOVE THE [place]. RT JENI RECOMMENDS TO ADVANCE TUBE [address] BOYD IN AGREEMENT, WITH NEW ORDER TO ADVANCE THE ETT 2CM. DR BOYD ALSO WITH NEW ORDER TO INSERT OGT AND SY CATHETER. ORDERS READ BACK FOR CLARIFICATION. WILL CARRY OUT ALL NEW ORDERS
--- NOTE | 2019-08-07 20:30 | NUR ---
WIRELESS DEVELOPMENT MANAGER NOTES PATIENT SEEN AND EXAMINED BY DR SANZ, ACCOUNT SUPPORT ASSOCIATE. NEW PARAMETERS FOR BLOOD TRANSFUSION. TRANSFUSE 2 UNITS IF HGB <8. DR SANZ ALSO WITH NEW ORDER FOR 2 FFP NOW, AND MISC. ORDER FOR 2 UNITS FFP AFTER PRBC, IF PRBC NEEDED FOR HGB < 8
--- NOTE | 2019-08-07 21:18 | NUR ---
COTTON TIPPER NOTES - ETT ADVANCEMENT ETT TUBE ADVANCED 2CM TO 25CM @ LIP LINE ORDERED BY DR BOYD. Addendum: 08/07/19 at 2119 by BESSIE MEDINA RN ETT ADVANCED BY RT NGO
--- NOTE | 2019-08-07 21:21 | NUR ---
ETT ADVANCED 2CM PER [address] BOYD. ETT IS NOW AT 25CM AT THE LIP.
[2019-08-07 21:47] LABS: HEMOGLOBIN 9.4 g/dL (13.5-17.5)
[2019-08-07] MEDS: PROPOFOL 100 ML IV PRN (22:01)
--- NOTE | 2019-08-07 22:30 | NUR ---
ABG DONE. NOTIFIED RN ALESIA WITH THE RESULT. FIO2 TITRATED.
--- NOTE | 2019-08-07 22:30 | NUR ---
AUTOMOTIVE BUYER NOTES ABG RESULTS RELAYED TO DR BOYD. RT JENI TITRATED FIO2 DOWN TO 60%, DR BOYD IN AGREEMENT. BICARB LEVEL = 15. PER DR BOYD, NO NEED FOR REPLACEMENT
[2019-08-07] MEDS ORDERED: NOREPINEPHRINE 4 MG/4 ML AMPUL IV ONE (23:54)
[2019-08-08] VITALS (108 sets, daily range): BP systolic 76–148; BP diastolic 39–111
--- NOTE | 2019-08-08 | NUR ---
HYDRAULIC LIFT OPERATOR NOTES NGT REPOSITIONED BY RN, CONFIRMED PROPER PLACEMENT BY AUSCULTATION, VERIFIED WITH GLASS SCULLION
--- NOTE | 2019-08-08 00:01 | NUR ---
OUTSOLE COMPRESSOR NOTES GOLYTELY STARTED VIA OGT AFTER NGT PLACEMENT CONFIRMATION VIA AUSCULTATION BY PRIMARY RN AND ELECTRONIC LAB TECHNICIAN
[2019-08-08] MEDS: NOREPINEPHRINE 8 MG in IV D5W 500 ML IV PRN ×2 (00:32→04:27)
[2019-08-08] MEDS: PROPOFOL 100 ML IV PRN ×5 (01:12→17:01)
--- NOTE | 2019-08-08 02:30 | NUR ---
CIRCLE EDGER NOTES - FFP TRANSFUSION FFP X 2 UNITS TRANSFUSED. PATIENT TOLERATED WELL, NO SIGNS AND SYMPTOMS OF ADVERSE BLOOD PRODUCT TRANSFUSION. WILL MONITOR CLOSELY
--- NOTE | 2019-08-08 03:18 | NUR ---
PAYROLL OFFICER NOTES FIO2 TITRATED DOWN TO 50% BY RT JENI. PATIENT TOLERATING WELL, NO EPISODES OF DESATURATION NOTED. WILL MONITOR
[2019-08-08 04:23] LABS: BASOPHILS # (AUTO) 0.1 /CMM (0.0-0.2); BASOPHILS % (AUTO) 0.3 % (0.0-2.0); HEMATOCRIT 23 % (39-51); HEMOGLOBIN 7.8 g/dL (13.5-17.5); LYMPHOCYTES # (AUTO) 1.8 /CMM (0.8-4.8); LYMPHOCYTES % (AUTO) 8.9 % (20.0-44.0); MEAN CORPUSCULAR HGB CONC 33 g/dl (31.0-36.0); MEAN CORPUSCULAR VOLUME 90 fL (80-96); MONOCYTES # (AUTO) 1.5 /CMM (0.1-1.30); MONOCYTES % (AUTO) 7.1 % (2.0-12.0); NEUTROPHILS # (AUTO) 17.4 /CMM (1.8-8.9); NEUTROPHILS % (AUTO) 83.7 % (43.0-81.0); PLATELET COUNT (AUTO) 271 /CMM (150-450); WHITE BLOOD COUNT (AUTO) 20.8 K/uL (4.3-11.0)
[2019-08-08] MEDS ORDERED: NOREPINEPHRINE 4 MG/4 ML AMPUL IV ONE (04:23)
[2019-08-08] MEDS ORDERED: SORBITOL SOLUTION 30 ML NG SCH ×2 (04:30→06:00)
[2019-08-08 04:39] LABS: CREATININE 1.7 mg/dL (0.6-1.3); POTASSIUM 4.7 mmol/L (3.5-5.1)
[2019-08-08 04:44] LABS: CALCIUM, SERUM 7.1 mg/dL (8.5-10.1)
[2019-08-08] MEDS ORDERED: SORBITOL SOLUTION 30 ML ONE (05:11)
--- NOTE | 2019-08-08 06:00 | NUR ---
MID LEVEL GAME DESIGNER NOTES H/H/ NOTED TO DROP TO 7.8/. PER STANDING ORDERS FROM DR SANZ, 1 UNIT OF PACKED CELLS ORDERED WELL 2 UNITS OF FFP.
--- NOTE | 2019-08-08 06:05 | NUR ---
INTERPRETIVE PROGRAM COORDINATOR NOTES GOLYTELY BOWEL PREP COMPLETED, PATIENT WITH MULTIPLE BMs, DARK BLOODY STOOL OUTPUT WITH CLOTS. ALTHOUGH GOLYTELY FINISHED, STOOL REMAINS DARK AND BLOODY WITH CLOTS.
[2019-08-08] MEDS: Potassium Chloride 10 MEQ in IV NS 0.9% 1,000 ML IV PRN (06:49)
--- NOTE | 2019-08-08 07:18 | NUR ---
JIG BORING MACHINE OPERATOR FOR METAL NOTES SPOKE TO PHARMACIST KEM REGARDING SORBITOL SOLUTION. TRAINS SERVICE CONDUCTOR NIGHTLOCKER ONLY WITH 60ML OF SORBITOL SOLUTION, ORDER FOR 120. REMAINING 60ML DELIVERED FROM PHARMACY AND ADMINISTERED, TOTAL OF 120ML ORDERED
[2019-08-08] MEDS: PANTOPRAZOLE 40 MG VIAL IV SCH ×2 (08:29→20:25)
[2019-08-08] MEDS ORDERED: PIPERACILLIN /TAZOBACTAM 3.375 G in IV D5W 50 ML IV ONE (09:00)
[2019-08-08 09:23] LABS: ABG BASE EXCESS -7.8 mmol/L; ABG OXYGEN SATURATION 94.7 % (92.0-98.5); ABG PCO2 27.9 mmHg (35.0-45.0); ABG PH 7.384 (7.350-7.450); ABG PO2 82.7 mmHg (75.0-100.0); AaDO2 242.4 mmHg; COHb 0.5 % (0.5-1.5); MetHb 0.9 % (0.0-1.5); O2Hb 93.4 % (94.0-97.0); SITE, ABG Right Radial
[2019-08-08] MEDS ORDERED: ANESTHESIA TRAY IN PYXIS 1 EA TRAY MC ONE (09:24)
[2019-08-08] MEDS: NOREPINEPHRINE 16 MG in IV D5W 500 ML IV PRN (09:39)
[2019-08-08] MEDS ORDERED: PANTOPRAZOLE 40 MG VIAL IV ONE (11:22)
--- NOTE | 2019-08-08 12:47 | NUR ---
rn notes Dr. Roa called, lab results relayed, he ordered : no more blood transfsuion at this time, okay to finish FFP running.he also ordered IV IG, Luis in pharmacy notified.
--- NOTE | 2019-08-08 12:57 | NUR ---
rn notes 0900-received patientt from RN earlier. patient orally intubated, on propfool drip at 40 mcg/kg/min, levophed titrated to keep SBP >[address] Brannon, Dr. Rios spoke to patient son, daughter, regarding patient status and ploan of care. per Dr. Roa, hold IVF when transfusing blood, implemented
[2019-08-08] MEDS ORDERED: IMMU GLOBULIN GAMMA IV ONE ×4 (13:00→20:00)
[2019-08-08] MEDS ORDERED: methylPREDNISolone SOD SUCC 125 MG/2ML VIAL IV ONE ×2 (13:00→23:30)
[2019-08-08] MEDS: SOD FERRIC GLUC 125 MG in IV NS 0.9% 100 ML IV SCH (14:57)
[2019-08-08] MEDS: FOLIC ACID 1 MG TABLET PO SCH (15:00)
[2019-08-08] MEDS ORDERED: ACETAMINOPHEN 325 MG TABLET PO PRN (15:30)
[2019-08-08] MEDS: diphenhydrAMINE HCL 50 MG/ML VIAL IV PRN (15:35)
[2019-08-08] MEDS: ACETAMINOPHEN 650 MG/20.3 ML UDC GT PRN (15:35)
[2019-08-08] MEDS: PIPERACILLIN /TAZOBACTAM 3.375 G in IV D5W 100 ML IV SCH ×2 (16:02→23:23)
[2019-08-08 16:45] LABS: D-DIMER 17.4 mg/L(FEU (0.17-0.50)
--- NOTE | 2019-08-08 16:55 | NUR ---
rn notes patient remainorally intubated. levophed titrated as needed for bp support. family members' questions answered. family tend to interrupt when answering them. Dr. Cruz made rounds and she apoke to patient son in person and patient daughter( who is supposed to be a PA) over the phone and discussed patient status.continue monitor patient status. noted patient to reach for ETT earlier. safety maintained. monitor status.
--- NOTE | 2019-08-08 17:47 | NUR ---
rn notes levophed ongoing, IV IG ongoing as well. VS within range.lab results are pending
[2019-08-08] MEDS ORDERED: methylPREDNISolone SOD SUCC 125 MG/2ML VIAL IV SCH (18:00)
--- NOTE | 2019-08-08 18:16 | NUR ---
rn notes patient had small amount of foul odor, dark red stools.eden care done.IV Ig( 1st dose) administered, patient oral temp 99.5, Luis, RPh aware, 2nd bottle of IV Ig started.
--- NOTE | 2019-08-08 19:30 | NUR ---
rn notes 1915-levo 12 mcg/min, propofol 40 mcg/kg/min. bp within range, report given to rn for further care
--- NOTE | 2019-08-08 19:54 | NUR ---
RECEIVED PT ORALLY INTUBATED WITH 7.5 ETT SECURED AT 25CM AT THE LIP VIA ANCHOR FAST ON VENT WITH THE SETTINGS OF AC 18, 550, 40%, +5. PT IS SEDATED. VENT ALARMS SET AND AUDIBLE. AMBU BAG AT BEDSIDE. VENT PLUGGED INTO RED OUTLET. WILL CONTINUE TO MONITOR THE PT.
--- NOTE | 2019-08-08 20:30 | NUR ---
RN NOTES RECEIVED PATIENT ORALLY INTUBATED WITH ETT 7.5 AND 25 CM AT LIPLINE CONNECTED TO VENT SETTING AC 18 TV 550 FIO2 40% PEEP 5. SEDATED WITH DIPRIVAN SR ON TELE MONITOR HR 78 WITH NGT INTACT AND PATENCY CHECKED. IV SITE ON [place] MIDLINE WITH LEVOPHED @ 12 MCG/MIN AND LFA G 20 WITH PROPOFOL @ 40 MCG/KG/MIN AND NS @ + KCL @ 100 ML/HR. AND LH #20 WITH IGG RUNNING @ 100 ML/HR ALL IV SITE INTACT AND PATENT NO REDNESS OR SWELLING ON THE SITE. DR. BOYD CALLED AND UPDATED PATIENT HGB LEVEL OF 8.0 NO ACTIVE BLEEDING AT THIS TIME. 1 MORE UNIT OF FFP STARTED. WITNESSED BY LOBO CONTRERAS VSS TEMP 98.1. SY CATH DRAINED VIA GRAVITY WITH CLEAR YELLOW COLOR URINE. KEPT PT CLEAN AND DRY WILL CLOSELY MONITOR.
--- NOTE | 2019-08-08 22:50 | NUR ---
RN NOTES CALLED AND SPOKE TO DR. BOYD AND VERIFIED ORDER REGARDING THE CANCELLED H/H PER MD TO DRAW H/H FOR TONIGHT AND CALL MD IF HGB <7.5, TYPE AND SCREEN AND ORDER 2 UNITS OF PRBC FOR RESERVATION.
[2019-08-08 23:02] LABS: HEMOGLOBIN 7.2 g/dL (13.5-17.5)
--- NOTE | 2019-08-08 23:25 | NUR ---
RN NOTES INFORMED DR. BOYD REGARDING HGB 7.2 AND HCT. 21 , NO ACTIVE BLEEDING PRESENT. WITH NEW ORDER SOLU MEDROL 125 MG IV ONCE NOTED AND CARRIED OUT ORDER. PATIENT REMAINED SEDATED AT THIS TIME. WITH ONGOING PRESSORS AND DIPRIVAN TITRATED ORDERED. FFP FINISHED WITHOUT ASE OR ANY REACTION PRESENT, AFEBRILE. WILL CONTINUE TO MONITOR.
[2019-08-09] VITALS (72 sets, daily range): BP systolic 83–136; BP diastolic 46–70
[2019-08-09] MEDS: PROPOFOL 100 ML IV PRN ×3 (00:18→08:24)
[2019-08-09] MEDS: NOREPINEPHRINE 16 MG in IV D5W 500 ML IV PRN (00:20)
[2019-08-09] MEDS: Potassium Chloride 10 MEQ in IV NS 0.9% 1,000 ML IV PRN ×2 (01:29→17:52)
[2019-08-09 04:33] LABS: BASOPHILS % (AUTO) 0.2 % (0.0-2.0); HEMATOCRIT 21 % (39-51); HEMOGLOBIN 7.3 g/dL (13.5-17.5); LYMPHOCYTES # (AUTO) 0.9 /CMM (0.8-4.8); LYMPHOCYTES % (AUTO) 9.9 % (20.0-44.0); MEAN CORPUSCULAR HGB CONC 34 g/dl (31.0-36.0); MEAN CORPUSCULAR VOLUME 90 fL (80-96); MONOCYTES # (AUTO) 0.4 /CMM (0.1-1.30); NEUTROPHILS # (AUTO) 7.7 /CMM (1.8-8.9); NEUTROPHILS % (AUTO) 85.9 % (43.0-81.0); PLATELET COUNT (AUTO) 187 /CMM (150-450); RED BLOOD CELL COUNT(AUTO) 2.37 MIL/uL (4.5-6.0); WHITE BLOOD COUNT (AUTO) 8.9 K/uL (4.3-11.0)
[2019-08-09 04:51] LABS: ALBUMIN 2.2 g/dL (3.4-5.0); BILIRUBIN,TOTAL 0.9 mg/dL (0.2-1.0); CALCIUM, SERUM 7.6 mg/dL (8.5-10.1); CREATININE 1.4 mg/dL (0.6-1.3); POTASSIUM 3.2 mmol/L (3.5-5.1); TOTAL PROTEIN, SERUM 5.8 g/dL (6.4-8.2)
--- NOTE | 2019-08-09 06:16 | NUR ---
RN NOTES INFORMED DR. BOYD REGARDING PATIENT LATEST HGB 7.3 AND HCT 21,. NO TRANSFUSION AT THIS TIME UNLESS WE HAVE THE RIGHT BLOOD. TROPONIN LEVEL ORDER, CALL TO LAB TO ADD.
--- NOTE | 2019-08-09 06:45 | NUR ---
RN NOTES NO SIGNIFICANT CHANGES THROUGHOUT THE SHIFT. ETT AND VENT SETTING TOLERATED WELL TITRATED BY RT PATIENT COMFORT. REMAINED SR ON TELE MONITOR. SEDATED WITH DIPRIVAN TITRATED ORDERED.NGT KEPT INTACT AND PATENT. LEVOPHED @ 2MCG/MIN AND DIPRIVAN REMAINED AT 40 MCG/KG/MIN, TITRATED ORDERED. CONTINUE IVF NS +10 MEQ KCL @ 75 ML/HR. ALL IV SITE ARE INTACT AND PATENT. BMX1 WITH SMALL AMT. OF LIQUID BLOODY STOOL. LATEST HGB 7.[address] BOYD AWARE. KEPT PT CLEAN AND DRY, TURNED AND REPOSITIONED Q2H AND PRN. BED LOCKED AND SECURED. WILL ENDORSED CONTINUITY OF CARE TO AM NURSE.
[2019-08-09] MEDS: PIPERACILLIN /TAZOBACTAM 3.375 G in IV D5W 100 ML IV SCH ×3 (07:03→23:21)
--- NOTE | 2019-08-09 07:15 | NUR ---
ASSEMBLER PIANO NOTES RECEIVED BEDSIDE REPORT. PT INTUBATED AND SEDATED WITH BILATERAL RESTRAINTS. NO S/S OF RESPIRATORY DISTRESS ETT 7.5/25@ THE LIP TOLERATING VENT SETTINGS ORDERED NO ACUTE PAIN NOTED. SINUS ON MONITOR. SY CATH DRAINING CLEAR YELLOW URINE NO BLOOD NOTED. [place] MIDLINE RUNNING DIPRIVAN @ 40 MCG AND LEVOPHED @ 2 MCG. LFA NS WITH K+ @ 70 ML/HR LEFT HAND # 20 GAUGE RUNNING ZOSYN. BILATERAL WRIST RESTRAINTS APPLIED AT THIS TIME FOR PULLING @ LINES CIRCULATION CHECKED.SAFETY AND ASPIRATION PRECAUTION IN PLAC EBD IN LOW LOCKED POSITION MONITORED ACCORDINGLY.
--- NOTE | 2019-08-09 07:40 | NUR ---
CRITICAL LAB VALUE TROPONIN 0.474 DR CHAVEZ AWARE NO NEW ORDERS
--- NOTE | 2019-08-09 07:47 | NUR ---
SPOKE WITH DR BOYD. ORDERS TO TITRATE OF DIPROVAN TODAY FOR POSSIBLE EXTUBATION
[2019-08-09] MEDS ORDERED: POTASSIUM CHLORIDE 20 MEQ POWDER PACKET NG ONE (08:00)
[2019-08-09] MEDS: SUCRALFATE 1 G/10 ML UDC NG SCH ×3 (08:23→20:30)
[2019-08-09] MEDS: PANTOPRAZOLE 40 MG VIAL IV SCH ×2 (08:23→20:30)
[2019-08-09] MEDS: FOLIC ACID 1 MG TABLET PO SCH (08:23)
[2019-08-09] MEDS ORDERED: methylPREDNISolone SOD SUCC 125 MG/2ML VIAL IV SCH (09:00)
--- NOTE | 2019-08-09 09:00 | NUR ---
LEVO STOPPED PATIENT TOLERATING
[2019-08-09] MEDS: methylPREDNISolone SOD SUCC 40 MG/ML VIAL IV SCH ×2 (09:06→15:16)
--- NOTE | 2019-08-09 09:15 | NUR ---
DR CRISOSTOMO AT [facility] . CONT PROTONIX ORDERED
[2019-08-09] MEDS ORDERED: FUROSEMIDE 20 MG/2 ML VIAL IV ONE (09:30)
--- NOTE | 2019-08-09 09:49 | NUR ---
VERBAL ORDER FROM DR LAWRENCE SMV 4 PSV 12 PEEP OF 5
[2019-08-09] MEDS ORDERED: DC PROPOFOL WHEN EXTUBATED XX PRN (10:00)
[2019-08-09 11:48] LABS: ABG BASE EXCESS -3.5 mmol/L; ABG OXYGEN SATURATION 91.3 % (92.0-98.5); ABG PCO2 26.1 mmHg (35.0-45.0); ABG PH 7.485 (7.350-7.450); ABG PO2 63.2 mmHg (75.0-100.0); COHb 0.6 % (0.5-1.5); MetHb 0.8 % (0.0-1.5); SITE, ABG Right Radial
--- NOTE | 2019-08-09 11:54 | NUR ---
THOMAS DRAWN AND GIVEN TO DR LAWRENCE TO REVIEW FOR PLAN OF CARE FOR EXTUBATION
--- NOTE | 2019-08-09 11:57 | NUR ---
ORDERS FOR EXTUBATION .
--- NOTE | 2019-08-09 11:58 | NUR ---
UPDATED FROM SW THAT [facility] KRISHNA WILL CALL @ 1200 FOR UPDATE
[2019-08-09] MEDS: diphenhydrAMINE HCL 50 MG/ML VIAL IV PRN (12:54)
[2019-08-09] MEDS: ACETAMINOPHEN 650 MG/20.3 ML UDC GT PRN (12:54)
--- NOTE | 2019-08-09 13:10 | NUR ---
FAXED [facility] TO [facility] [phone]
--- NOTE | 2019-08-09 13:42 | NUR ---
STARTED IVIG ORDERED
[2019-08-09] MEDS ORDERED: IMMU GLOBULIN GAMMA IV ONE ×2 (14:00→14:30)
--- NOTE | 2019-08-09 15:33 | NUR ---
SPOKE WITH DR BOYD TO CLARIFY ORDER. DOES NOT WANT ANY OTHER FLUIDS/ATB RUNNING DURING IVIG
--- NOTE | 2019-08-09 15:34 | NUR ---
CALLED BLOOD BANK FOR 1 UNIT OF BLOOD. PT HAS ANTIBODIES WILL PREPARE AND HANG AFTER IVIG
--- NOTE | 2019-08-09 16:03 | NUR ---
BED BATH GIVEN AND ORAL CARE. PATIENT HAD LARGE MELENA WATERY STOOL NO KARMA BLOOD NOTED
--- NOTE | 2019-08-09 17:14 | NUR ---
NEW ORDERS OBTAINED FROM DR BOYD. D/C SOLU MEDROL D/C IVIG GIVE 2 UNITS PRBC ORDER H&H Q6HRS AFTER TRANSFUSION ENDS
--- NOTE | 2019-08-09 18:04 | NUR ---
NEW ORDERS FROM DR BOYD TRANSFUSE ONLY 1 UNIT PRBC DRAW H&H AFTER TRANSFUSION IF <8 TRANSFUSE 2ND PRBC IF >8 DO NOT TRANSFER DRAW LABS IN THE MORNING
--- NOTE | 2019-08-09 18:50 | NUR ---
POST ACUTE CARE REGISTERED NURSE NOTES PATIENT REMAINED STABLE THROUGHOUT THE SHIFT. NO SIGNS OR SYMPTOMS OF RESPIRATORY DISTRESS TOLERATING 5 LTRS NASAL CANNULA. NO C/O PAIN NOTED. SINUS ON MONITOR . SY CATH DRAINING CLEAR YELLOW URINE . NPO NGT TO RIGHT NARES FOR MEDS ONLY. [place] MID LINE FLUSHED AND PATENT. LFA MIDLINE RUNNING ZOSYN @ 25 ML/HR AND NS/K+ @ 75 ML HR. LEFT HAND # 20 GAUGE SALINE LOCKED. REPOSITIONED FOR COMFORT FAMILY AT BEDSIDE. SAFETY AND ASPIRATION PRECAUTIONS IN PLACE BED IN LOW LOCKED POSITION CALL LIGHT WILL ENDORSE TO NOC
--- NOTE | 2019-08-09 19:26 | NUR ---
BLOOD TRANSFUSION STARTED
--- NOTE | 2019-08-09 19:47 | NUR ---
RN NOTES RECEIVED PATIENT AWAKE ALERT ORIENTED X3, CALM AND COOPERATIVE. ON O2 5LPM VIA NC SATURATION 96%. NSR ON TELE MONITOR. RONCHI MORE ON RIGHT SIDE THAN LEFT. NSR ON TELE MONITOR. WITH NGT INTACT AND PATENT. IV SITE ON [place] MIDLINE RUNNING WITH BLOOD TRANSFUSION NO ACUTE RESP. DISTRESS NOTED. TEMP 99 DEG. SATURATION WELL. WTIH SY CATH DRAINED WITH YELLOW CLEAR COLOR URINE. KEPT PT CLEAN AND DRY. TURN AND REPOSITIONED FOR SKIN MANAGEMENT. Addendum: 08/09/19 at 2138 by ALYSSA BHATIA RN ERROR USER NOTE FROM ALYSSA CONTRERAS NOT FROM MARIMA
--- NOTE | 2019-08-09 19:50 | NUR ---
RN NOTES RECEIVED PATIENT AWAKE ALERT ORIENTED X3, CALM AND COOPERATIVE. ON O2 5LPM VIA NC SATURATION 96%. NSR ON TELE MONITOR. RHONCHI MORE ON RIGHT SIDE THAN LEFT. NSR ON TELE MONITOR. WITH NGT INTACT AND PATENT. IV SITE ON [place] MIDLINE RUNNING WITH BLOOD TRANSFUSION NO ACUTE RESP. DISTRESS NOTED. TEMP 99 DEG. SATURATION WELL. WTIH SY CATH DRAINED WITH YELLOW CLEAR COLOR URINE. KEPT PT CLEAN AND DRY. TURN AND REPOSITIONED FOR SKIN MANAGEMENT.
[2019-08-09] MEDS: SOD FERRIC GLUC 125 MG in IV NS 0.9% 100 ML IV SCH (21:44)
[2019-08-09] MEDS: ONDANSETRON HCL/PF 4 MG/2 ML VIAL IV PRN (22:31)
--- NOTE | 2019-08-09 23:10 | NUR ---
RN NOTES INFORMED DR. BOYD THAT FAMILY STATING THAT THE PATIENT IS COMPLAINING OF ON AND OFF CHEST PAIN. PER MD. WITH ORDER TROPONIN LEVEL, EKG , NORCO 5/325 Q6H PRN, TYLENOL 650 MG Q6H PRN AND TO CALL HAND SHOES SEWER. NOTED AND CARRIED OUT ORDERS
--- NOTE | 2019-08-09 23:20 | NUR ---
RN NOTES CALLED [employer] REPAIR TECHNICIAN RESPIRATORY MANAGER SPOKE WITH DR. DUBON INFORMED THAT THE PATIENT IS COMPLAINING OF NON RADIATING CHEST PAIN PER FAMILY. WITH ORDER TO CHECKED 2 SERIAL TROPONIN LEVEL AND 2 SERIAL OF EKG. NOTED AND CARRIED OUT ORDER.
--- NOTE | 2019-08-09 23:52 | NUR ---
RN NOTES CALLED AND SPOKE WITH DR. DUBON REGARDING EKG RESULT OF SINUS RHYTHM AND TROPONIN LEVEL OF 0.756 NNO PER MD AND CONTINUE TO CHECKED TROPONIN AND EKG AFTER 6H. NOTED
[2019-08-10] VITALS (37 sets, daily range): BP systolic 106–149; BP diastolic 54–74
[2019-08-10] MEDS: HYDROCODONE/APAP 5/325MG 1 EACH TABLET PO PRN ×2 (00:11→16:16)
[2019-08-10] MEDS: SUCRALFATE 1 G/10 ML UDC NG SCH ×4 (02:14→20:08)
[2019-08-10 04:44] LABS: BASOPHILS % (AUTO) 0.1 % (0.0-2.0); HEMATOCRIT 24 % (39-51); HEMOGLOBIN 8.3 g/dL (13.5-17.5); LYMPHOCYTES # (AUTO) 0.9 /CMM (0.8-4.8); LYMPHOCYTES % (AUTO) 14.2 % (20.0-44.0); MEAN CORPUSCULAR HGB CONC 34 g/dl (31.0-36.0); MEAN CORPUSCULAR VOLUME 91 fL (80-96); MONOCYTES # (AUTO) 0.4 /CMM (0.1-1.30); MONOCYTES % (AUTO) 6.4 % (2.0-12.0); NEUTROPHILS # (AUTO) 5.1 /CMM (1.8-8.9); NEUTROPHILS % (AUTO) 79.3 % (43.0-81.0); PLATELET COUNT (AUTO) 160 /CMM (150-450); RED BLOOD CELL COUNT(AUTO) 2.66 MIL/uL (4.5-6.0); WHITE BLOOD COUNT (AUTO) 6.5 K/uL (4.3-11.0)
[2019-08-10 04:59] LABS: CALCIUM, SERUM 7.7 mg/dL (8.5-10.1); CREATININE 1.3 mg/dL (0.6-1.3); POTASSIUM 3.2 mmol/L (3.5-5.1)
--- NOTE | 2019-08-10 07:15 | NUR ---
RN NOTES S/E BY DR. CONTRERAS AT BEDSIDE. UPDATED REGARDING PATIENT STATUS LATEST TROPONIN LEVEL 0.648, HGB 8.3 EKG NSR WITH BBB. AND HAD AN EPISODE OF COMPLAINING OF RIGHT CHEST PAIN AND ABDOMINAL PAIN. NO SIGNIFICANT CHANGES SHOWN. ASLEEP ABOUT 2-4 HOURS.. ALSO INFORMED DR. BOYD THAT PATIENT FEELS LIKE HE IS CHOWKING WHEN HE DRINKS LIQUID, AND PATIENT STILL WITH NGT. PER MD TO HOLD FEEDING AND DO SWALLOW EVAL FIRST AND TO PULED OUT NGT. ENDORSED CONTINUITY OF CARE TO AM NURSE.
[2019-08-10] MEDS: PIPERACILLIN /TAZOBACTAM 3.375 G in IV D5W 100 ML IV SCH ×3 (07:22→23:39)
--- NOTE | 2019-08-10 07:40 | NUR ---
ICU/RN PT IS IN THE BED AWAKE ,ALERT .POST EXTUBATION ON 08/09/19.V/S STABLE,AFEBRILE.NO PAIN REPORTED AT THIS TIME.S/P POST CABG 2 WEEKS AGO.S/P CODE BLUE 08/07/19. RIGHT UPPER ARM IV MIDLINE INFUSING ORDERED.GENERALIZED EDEMA PRESENT.F/C DRAINING WITH YELLOW URINE .CHEST WOUND COVERED WITH DRESSING.NG TUBE CLAMPED.LABS REVIEW. NOTIFIED.
[2019-08-10] MEDS ORDERED: Z GUARD REMEDY 2 OZ OINT TP PRN (08:30)
--- NOTE | 2019-08-10 08:41 | NUR ---
WOUND CARE CONSULT: PT PRESENTS WITH CLOSED INCISIONS TO LEFT LOWER LEG RT MEDIAL THIGH AND CHEST, PRESENT ON ADMISSION. SOME CRUSTING NOTED TO CHEST INCISION AND SOME BROWN ESCHAR/CRUST NOTED TO LEFT LOWER LEG CLOSED INCISION, NO DRAINAGE OR TENDERNESS NOTED. DEFER TO . PT TO FOLLOW UP WITH HIS SURGEON. RECOMMENDATIONS MADE FOR SKIN PROTECTION. DISCUSSED WITH NURSING STAFF. WILL SEE PRN. PT IS CONTINENT AT THIS TIME WITH KERRIE JARAMILLO MD IN AGREEMENT WITH PLAN OF CARE. Addendum: 08/10/19 at 0843 by ALYSSA CAMERON WNDNU Amended: Links added.
[2019-08-10] MEDS: FOLIC ACID 1 MG TABLET PO SCH (08:53)
[2019-08-10] MEDS: PANTOPRAZOLE 40 MG VIAL IV SCH ×2 (08:54→20:09)
[2019-08-10] MEDS ORDERED: POTASSIUM CHLORIDE 10 MEQ/50 ML PREMIXED IVPB FOR PERIPHERAL LINE IV ONE (09:00)
--- NOTE | 2019-08-10 09:00 | NUR ---
ICU/RN DUE MEDS ARE GIVEN ORDERED.NG TUBE REMOVED.PT TOLERATED WELL .
[2019-08-10] MEDS ORDERED: PANTOPRAZOLE 40 MG VIAL ONE (09:11)
[2019-08-10] MEDS: POTASSIUM CL. PREMIX PERIPHER. 50 ML IV SCH ×2 (09:58→10:40)
[2019-08-10] MEDS ORDERED: BISACODYL SUPP (10 MG) 10 MG/SUPP.RECT SUPP.RECT RC PRN (10:00)
[2019-08-10] MEDS: FUROSEMIDE 20 MG/2 ML VIAL IV SCH ×2 (10:42→16:16)
[2019-08-10] MEDS ORDERED: ENSURE CLEAR 237 ML LIQUID (MIX BERRY) PO SCH (11:00)
[2019-08-10] MEDS: ENSURE ENLIVE 237 ML LIQUID (VANILLA) PO SCH ×2 (12:14→17:52)
[2019-08-10] MEDS ORDERED: GUAIFENESIN/CODEINE 10 ML UDC PO PRN (12:30)
--- NOTE | 2019-08-10 12:41 | NUR ---
ICU/RN DUE MEDS ARE GIVEN ORDERED.RECEIVED ORDER TRANSFER PT TO TELE UNIT.PT AND FAMILY NOTIFIED.
--- NOTE | 2019-08-10 12:49 | NUR ---
ICU/RN PT SAT O2 DECREASE TO 90%.DR LAWRENCE NOTIFIED.PT PLACED ON 5L N/C .ROBITUSSIN ORDERED AND GIVEN.SUCTION ORDERED.BREATHING TREATMENT ORDERED.RT AT BED SIDE.HOLD TRANSFER FOR NOW PER DR LAWRENCE.
[2019-08-10] MEDS ORDERED: ACETYLCYSTEINE 10% SOLN 400 MG/4 ML VIAL ONE (12:52)
[2019-08-10] MEDS ORDERED: IPRATROPIUM NEB FS 0.5 MG/2.5 ML AMPUL.NEB ONE (12:52)
[2019-08-10] MEDS: IPRATROPIUM NEB FS 0.5 MG/2.5 ML AMPUL.NEB NEB SCH ×3 (13:30→19:42)
[2019-08-10] MEDS: ACETYLCYSTEINE 10% SOLN 400 MG/4 ML VIAL NEB SCH ×2 (13:44→15:30)
--- NOTE | 2019-08-10 16:15 | NUR ---
ICU/RN PT C/O OF ABDOMINAL PAIN.NORCO PO GIVEN ORDERED. BISACODYL SUPPOSITORIUM INSERTED ORDERED.PM CARE PROVIDED.REPOSITION FOR COMFORT.FAMILY AT BED SIDE.
[2019-08-10] MEDS: SOD FERRIC GLUC 125 MG in IV NS 0.9% 100 ML IV SCH (16:47)
--- NOTE | 2019-08-10 19:10 | NUR ---
ICU/RN RECEIVED CALL FROM [facility] TRANSFERRING CASE MANAGEMENT.DR BOYD CANCELL TRANSFER.PT IS IN THE STABLE CONDITION .TELE STATUS.V/S STABLE,AFEBRILE.NO PAIN REPORTED AT THIS TIME.
--- NOTE | 2019-08-10 19:45 | NUR ---
ICU/APPLICATION SYSTEMS ADMINISTRATOR RECEIVED REPORT FROM DAY SHIFT NURSE. SEE FLOWSHEET FOR ASSESSMENT. THERE IS A FEW SKIN ISSUES THAT PT HAS, WHICH IS ADDRESSED ON FLOWSHEET ALONG WITH THE INTERVENTION TO EACH OF THESE. PT IS ON A CARDIAC-PUREE DIET, WHICH PT IS TOLERATING. PT IS CURRENTLY ON 5 LITERS N/C, WITH SATURATION AT 92-95%. PT WAS TURNED AND REPOSITIONING FOR COMFORT AND CARE. WILL CONTINUE TO MONITOR THIS PT.
--- NOTE | 2019-08-10 21:15 | NUR ---
RECEIVED PATIENT FROM ICU VIA GURNEY IN STABLE CONDITION. DTR AT BEDSIDE. PATIENT AWAKE, A/O X4, AND ABLE TO VERBALIZE NEEDS. NO C/O PAIN OR DISCOMFORT AND BREATHING EASILY ON 02 AT 4LPM VIA NC. [place] MIDLINE AND LFA PERIPHERAL LINES INTACT AND PATENT. FC INTACT AND PATENT. PATIENT NOTED WITH GENERALIZED BRUISING, INCISION ON MID CHEST/ABDOMEN, AND BLE. ENCOURAGED USE OF CALL LIGHT FOR ASSISTANCE AND VERBALIZED GOOD UNDERSTANDING. BED IN LOW LOCK SETTING. ROOM FREE OF CLUTTER AND BELONGINGS KEPT NEAR BEDSIDE. WILL CONTINUE TO MONITOR
--- NOTE | 2019-08-10 21:40 | NUR ---
ICU/PIECE HAND REPORT GIVEN TO 3RD FLOOR DIANE JEFFRIES. PT WAS TRANSFERRED WITH ACLS PRECAUTIONS AND CHARGE NURSE.
[2019-08-11] VITALS (7 sets, daily range): BP systolic 123–146; BP diastolic 61–82
[2019-08-11] MEDS: ACETYLCYSTEINE 10% SOLN 400 MG/4 ML VIAL NEB SCH ×3 (00:41→14:30)
[2019-08-11] MEDS: IPRATROPIUM NEB FS 0.5 MG/2.5 ML AMPUL.NEB NEB SCH ×4 (00:42→19:56)
[2019-08-11] MEDS: SUCRALFATE 1 G/10 ML UDC NG SCH ×4 (01:01→20:15)
--- NOTE | 2019-08-11 06:20 | NUR ---
CALLIOPE PLAYER NOTES PATIENT ASLEEP IN BED WITH NO DISTRESS NOTED. CALL LIGHT WITHIN REACH. DTR AT BEDSIDE. ALL DUE MEDS GIVEN ORDERED WITH NO ASE. PERIPHERAL LINES INTACT AND PATENT. NO C/O PAIN OR DISCOMFORT. DTR AND PATIENT REFUSED SKIN PICTURES AND REQUESTED PATIENT REST. ALSO REFUSED AM DIAPER CHANGE. ROOM FREE OF CLUTTER AND BELONGINGS KEPT NEAR BEDSIDE. BED IN LOW LOCK SETTING. WILL ENDORSE TO ONCOMING SHIFT.
--- NOTE | 2019-08-11 07:30 | NUR ---
TELE/ RN NOTES PATIENT ASLEEP IN ED WITH NO SIGNS OF PAIN OR DISTRESS. SHOW EVEN UNLABORED RESPIRATIONS. RIGHT MIDDLE LINE IS CLEAN AND INTACT, SHOWS NO REDNESS AND INFILTRATION. LAC IV #20 SALINE LOCK IS IS CLEAN, DRY AND INTACT. SHOWS NO REDNESS AND INFILTRATION. KEPT BED LOW AND LOCKED, CALL LIGHT WITHIN REACH. DAUGHTER BY BEDSIDE.
[2019-08-11 08:03] LABS: BASOPHILS % (AUTO) 0.1 % (0.0-2.0); CALCIUM, SERUM 7.9 mg/dL (8.5-10.1); EOSINOPHILS % (AUTO) 0.3 % (0.0-6.0); HEMATOCRIT 27 % (39-51); LYMPHOCYTES # (AUTO) 1.1 /CMM (0.8-4.8); LYMPHOCYTES % (AUTO) 23.6 % (20.0-44.0); MEAN CORPUSCULAR HGB CONC 33 g/dl (31.0-36.0); MEAN CORPUSCULAR VOLUME 93 fL (80-96); MONOCYTES # (AUTO) 0.4 /CMM (0.1-1.30); MONOCYTES % (AUTO) 8.1 % (2.0-12.0); NEUTROPHILS # (AUTO) 3.3 /CMM (1.8-8.9); NEUTROPHILS % (AUTO) 67.9 % (43.0-81.0); PLATELET COUNT (AUTO) 139 /CMM (150-450); POTASSIUM 3.1 mmol/L (3.5-5.1); RED BLOOD CELL COUNT(AUTO) 2.92 MIL/uL (4.5-6.0); WHITE BLOOD COUNT (AUTO) 4.9 K/uL (4.3-11.0)
[2019-08-11] MEDS: PIPERACILLIN /TAZOBACTAM 3.375 G in IV D5W 100 ML IV SCH ×3 (08:47→23:02)
[2019-08-11] MEDS: FOLIC ACID 1 MG TABLET PO SCH (08:48)
[2019-08-11] MEDS: PANTOPRAZOLE 40 MG VIAL IV SCH ×2 (08:55→21:45)
[2019-08-11] MEDS: ENSURE ENLIVE 237 ML LIQUID (VANILLA) PO SCH ×2 (09:00→17:00)
--- NOTE | 2019-08-11 09:27 | NUR ---
PODIATRY TEACHER NOTE SPOKE TO DR. CONTRERAS, MADE HIM AWARE OF TROPONIN 0.418 PER MD NO NEED TO REPEAT TROPONIN. Addendum: 08/11/19 at 0934 by BECKI BRUNSON RN DR. CONTRERAS ALSO MADE AWARE OF 08/11 6040 RIGHT BBB PER MD NO NEW ORDERS.
[2019-08-11] MEDS: POTASSIUM CHLORIDE 20 MEQ TAB.PRT.SR PO SCH ×2 (10:34→12:02)
[2019-08-11] MEDS ORDERED: POTASSIUM CHLORIDE 20 MEQ TAB.PRT.SR PO ONE (11:30)
--- NOTE | 2019-08-11 12:00 | NUR ---
PAINTER SHIPYARD NOTE CONTACTED DR. BOYD REGARDING AND CLARIFIED THE ORDER OF POTASSIUM 40 MEQ THAT HE ORDERED DESPITE THE PATIENT ALREADY RECEIVING 40 MEQ OF POTASSIUM. PER MD STILL GIVEN ORDERED 40 MEQ POTASSIUM MAKING TOTAL OF 80 MEQ POTASSIUM.
[2019-08-11] MEDS ORDERED: METOPROLOL TARTRATE 25 MG TABLET PO SCH (13:00)
[2019-08-11] MEDS: SOD FERRIC GLUC 125 MG in IV NS 0.9% 100 ML IV SCH (14:24)
--- NOTE | 2019-08-11 17:15 | NUR ---
TELE/RN NOTES PATIENT IS NOTED TO HAVE DISTENDED ABDOMEN. PATIENT STATES FEELING CONSTIPATED AND GASSY. PER PATIENT HAD BOWEL MOVEMENT 08/[address] BOYD IS MADE AWARE, NEW ORDER OF KUB AND MYLANTA BID PRN IS RECEIVED. THE ORDERS ARE READ BACK, VERIFIED. NOTED AND CARRIED OUT.
--- NOTE | 2019-08-11 17:29 | NUR ---
TELE/RN NOTES DR. BOYD IS MADE AWARE OF PHARMACY RECOMMENDATION TO CHANGE ALUMINUM HYDROXIDE TO MAALOX FOR DYSPEPSIA . RECEIVED THE ORDER FOR MAALOX Q6H PRN CARRIED OUT.
[2019-08-11] MEDS ORDERED: ALUMINUM HYDROXIDE 1,920 MG/30 ML UDC PO PRN (17:30)
[2019-08-11] MEDS ORDERED: MAG HYDROX/AL HYDROX/SIMETH 30 ML UDC PO PRN (17:30)
--- NOTE | 2019-08-11 17:34 | NUR ---
CHINCHILLA FARMER NOTES REFUSED SKIN ASSESSMENT PICTURES, TURNING AND REPOSITIONING DESPITE EXPLAINING RISKS AND BENEFITS.
--- NOTE | 2019-08-11 17:47 | NUR ---
TELE/RN NOTES PATIENT REFUSED SCD DRESSING TO BE APPLIED ON LEFT LOWER LEG.
--- NOTE | 2019-08-11 18:09 | NUR ---
COLLEGE ADMISSIONS COUNSELOR NOTES PATIENT AWAKE, ALERT AND ORIENTED X 4. EXPRESSES NO SIGNS OF DISTRESS. NO SOB. RIGHT MIDLINE IS CLEAN, PATIENT AND INTACT, RUNNING ZOSYN. LAC #20G SALINE LOCK, CLEAN, PATIENT AND INTACT. SHOWS NO REDNESS, NO INFILTRATION. PATIENT REFUSED SKIN PICTURES. THE BED IS LOW POSITION, LOCKED. CALL LIGHT KEPT WITHIN REACH AND BELONGINGS KEPT NEAR BEDSIDE. DAUGHTER AT BEDSIDE. WILL ENDORSE TO ONCOMING SHIFT.
--- NOTE | 2019-08-11 19:15 | NUR ---
ADMINISTRATIVE ASSISTANT NOTES RECEIVED ON BED A/O X4,BREATHING NON LABORED,O2 IN USED AT 4L,S/P EXTUBATED FROM ICU.HOB ELEVATED,S/P CABG TWO WEEKS AGO,NOTED SCAR ON LEFT LOWER LEG,DVT PUMP IN USED ON RIGHT LOWER LEG.ABDOMEN DISTENDED BUT SOFT,S/P KUB ,NO OBSTRUCTION,MOSTLY GAS.ADVISED FAMILY, PATIENT NEEDS TO BE REPOSITION SIDE TO SIDE.WITH RIGHT UPPER ARM MIDLINE INTACT AND PATENT,SALINE LOCK LFA #20 INTACT/PATENT WELL.FAMILY MEMBERS AT BEDSIDE,CALL LIGHT IN REACH,NEEDS ANTICIPATED.
--- NOTE | 2019-08-11 21:30 | NUR ---
MONOTYPIST NOTES DUE PO MEDS GIVEN,TAKEN WELL.NEGATIVE FOR ASPIRATION
[2019-08-11] MEDS: TAMSULOSIN 0.4 MG CAP.SR.24H PO SCH (21:46)
[2019-08-11] MEDS: AMIODARONE HCL 200 MG TABLET PO SCH (21:46)
[2019-08-11] MEDS ORDERED: ATORVASTATIN 40 MG TABLET PO SCH (22:00)
[2019-08-11] MEDS ORDERED: FUROSEMIDE 20 MG/2 ML VIAL IV SCH (22:00)
--- NOTE | 2019-08-11 22:00 | NUR ---
CHEF NOTES OFFERED TO REPOSITION BUT REFUSED
--- NOTE | 2019-08-11 23:45 | NUR ---
BOUNTY HUNTER NOTES PAIN MANAGEMENT NIGHT CARE ADMINISTERED BY KOFFI PONCE,REPOSITION TO LEFT SIDE.
[2019-08-12] VITALS: BP 142/81
[2019-08-12] MEDS: HYDROCODONE/APAP 5/325MG 1 EACH TABLET PO PRN (00:07)
--- NOTE | 2019-08-12 00:07 | NUR ---
CHEMICAL DEPENDENCY ATTENDANT NOTES MEDICATED WITH NORCO 5/325MG, 1TAB PO GIVEN
[2019-08-12] MEDS: ACETYLCYSTEINE 10% SOLN 400 MG/4 ML VIAL NEB SCH ×4 (00:13→23:58)
[2019-08-12] MEDS: IPRATROPIUM NEB FS 0.5 MG/2.5 ML AMPUL.NEB NEB SCH ×5 (00:14→19:24)
--- NOTE | 2019-08-12 00:14 | NUR ---
HHN TX GIVEN EARLY. PT WANTS TO REST.
--- NOTE | 2019-08-12 01:00 | NUR ---
AUTOMOBILE BRAKES BONDER NOTES SLEEPING,DAUGHTER AT BEDSIDE.
[2019-08-12] MEDS: SUCRALFATE 1 G/10 ML UDC NG SCH ×4 (02:00→20:50)
[2019-08-12 04:00] VITALS: BP 123/72
--- NOTE | 2019-08-12 06:08 | NUR ---
BALL MACHINE OPERATOR NOTES FAIRLY RESTED,BREATHING TREATMENT TOLERATED WELL,PAIN MANAGEMENT EFFECTIVE.CALL LIGHT IN REACH,NEEDS ATTENDED.WILL ENDORSE TO DAY NURSE FOR ADELINA.
--- NOTE | 2019-08-12 06:16 | NUR ---
FLIGHT ENGINEER PERFORMANCE QUALIFIED NOTES REPORTED BY [email or web address] TECH,PATIENT IS HARD TO STICK FOR BLOOD DRAW.WILL SEND SOMEBODY SOMEBODY ELSE AT A LATER TIME TO DRAW BLOOD FOR BLOOD WORKS TODAY.
[2019-08-12] MEDS: PIPERACILLIN /TAZOBACTAM 3.375 G in IV D5W 100 ML IV SCH ×3 (06:28→22:50)
--- NOTE | 2019-08-12 07:30 | NUR ---
MANNEQUIN MAKER OPENING NOTES: RECEIVED PATIENT IN BED AWAKE WITH NO SIGNS OF SOB OR DISTRESS. RESPIRATIONS ARE EVEN AND UNLABORED. A/O X4. DAUGHTER PRESENT AT BEDSIDE AND HELPS TRANSLATE FOR THE PATIENT. PATIENT IS VERBALLY RESPONSIVE AND ABLE TO MAKE NEEDS KNOWN. NO COMPLAINS OF PAIN AT THIS TIME. RIGHT MIDDLE LINE IS CLEAN, PATENT, AND INTACT. LAC IV #20 SALINE LOCK IS IS CLEAN, DRY AND INTACT. NO S/S OF INFILTRATION. SAFETY MEASURES INITIATED. BED IS IN LOW, LOCKED POSITION. SIDE RAILS UP X2. CALL LIGHT WITHIN REACH. WILL CONTINUE TO MONITOR ACCORDINGLY.
[2019-08-12 07:52] LABS: BASOPHILS % (AUTO) 0.8 % (0.0-2.0); EOSINOPHILS % (AUTO) 0.7 % (0.0-6.0); HEMATOCRIT 27 % (39-51); LYMPHOCYTES # (AUTO) 1.2 /CMM (0.8-4.8); LYMPHOCYTES % (AUTO) 24.8 % (20.0-44.0); MEAN CORPUSCULAR HGB CONC 33 g/dl (31.0-36.0); MEAN CORPUSCULAR VOLUME 93 fL (80-96); MONOCYTES # (AUTO) 0.4 /CMM (0.1-1.30); NEUTROPHILS # (AUTO) 3.1 /CMM (1.8-8.9); NEUTROPHILS % (AUTO) 65.7 % (43.0-81.0); PLATELET COUNT (AUTO) 139 /CMM (150-450); WHITE BLOOD COUNT (AUTO) 4.7 K/uL (4.3-11.0)
[2019-08-12 08:00] VITALS: BP 154/78
[2019-08-12 08:13] LABS: BILIRUBIN,TOTAL 0.6 mg/dL (0.2-1.0); CALCIUM, SERUM 7.6 mg/dL (8.5-10.1); CREATININE 0.9 mg/dL (0.6-1.3); MAGNESIUM 1.8 mg/dL (1.8-2.4); POTASSIUM 3.5 mmol/L (3.5-5.1); TOTAL PROTEIN, SERUM 5.8 g/dL (6.4-8.2)
[2019-08-12] MEDS ORDERED: POTASSIUM CHLORIDE 20 MEQ TAB.PRT.SR PO ONE (09:00)
[2019-08-12] MEDS ORDERED: FUROSEMIDE 40 MG/4 ML VIAL IV ONE (09:00)
[2019-08-12] MEDS: PANTOPRAZOLE 40 MG VIAL IV SCH ×2 (09:02→21:46)
[2019-08-12] MEDS: AMIODARONE HCL 200 MG TABLET PO SCH (09:04)
[2019-08-12] MEDS: FOLIC ACID 1 MG TABLET PO SCH (09:04)
[2019-08-12] MEDS: METOPROLOL TARTRATE 25 MG TABLET PO SCH ×2 (09:05→21:47)
[2019-08-12] MEDS: ENSURE ENLIVE 237 ML LIQUID (VANILLA) PO SCH ×2 (09:06→17:29)
[2019-08-12] MEDS: LOSARTAN POTASSIUM 50 MG TABLET PO SCH (12:30)
--- NOTE | 2019-08-12 14:00 | NUR ---
AUDIT CONTROL CLERK NOTES: CALLED PHARMACY AT 13:50 TO BRING IN FERRLECIT 125MG DUE FOR 1400. STILL PENDING.
--- NOTE | 2019-08-12 15:00 | NUR ---
ZMT OPERATOR NOTES: CALLED PHARMACY AT 1430 AGAIN TO BRING IN FERRLECIT 125 MG THAT IS DUE AT 1400. STILL PENDING.
[2019-08-12] MEDS: SOD FERRIC GLUC 125 MG in IV NS 0.9% 100 ML IV SCH (15:58)
[2019-08-12 16:00] VITALS: BP 118/67
--- NOTE | 2019-08-12 19:00 | NUR ---
LABORATORY ANIMAL CARETAKER CLOSING NOTES: PATIENT IS AWAKE IN BED, STABLE. A/O X4. NO ACUTE CHANGES IN HIS CONDITION. NO S/S OF SOB OR DISTRESS. NO COMPLAINS OF PAIN OR DISCOMFORT. RIGHT MIDLINE IS CLEAN, PATIENT AND INTACT. LAC #20G SALINE LOCK, CLEAN, PATIENT AND INTACT. NO S/S OF INFILTRATION. ALL DUE MEDS GIVEN ORDERED, TOLERATED WELL. KEPT SAFETY MEASURES THROUGHOUT THE SHIFT. THE BED IS IN LOW, LOCKED POSITION, WITH SIDE RAILS UP X2. CALL LIGHT KEPT WITHIN REACH. AT BEDSIDE. WILL ENDORSE DEPUTY DIRECTOR OF NURSING NURSE FOR ADELINA.
--- NOTE | 2019-08-12 19:25 | NUR ---
TELE/RN NOTES RECEIVED PT. LYING IN BED. PT. IS AWAKE, ALERT AND ORIENTED X3. BREATHING EVEN AND UNLABORED ON 4LPM O2 VIA NC. NO SOB, RESPIRATORY DISTRESS OR COMPLAINTS OF PAIN NOTED AT THIS TIME. PT. WITH EXTERNAL CHEMICAL INSTRUMENTATION OFFICER PRESENT AND INTACT. CURRENT RHYTHM = SINUS RHYTHM WITH BBB HR 92. PT. WITH LEFT UPPER ARM MIDLINE PRESENT, PATENT AND INTACT. PT. WITH LEFT AC 20 GAUGE IV SALINE LOCK PRESENT, PATENT AND INTACT. PT. WITH FAMILY MEMBER PRESENT AT BEDSIDE. BED LOCKED AND IN LOWEST POSITION, SIDE RAILS UP X2, CALL LIGHT WITHIN REACH, WILL CONTINUE TO MONITOR.
[2019-08-12 20:00] VITALS: BP 124/68
[2019-08-12] MEDS: ATORVASTATIN 40 MG TABLET PO SCH (21:47)
[2019-08-12] MEDS: TAMSULOSIN 0.4 MG CAP.SR.24H PO SCH (21:47)
--- NOTE | 2019-08-12 22:30 | NUR ---
TELE/RN NOTES PT. IS REFUSING PHOTOS TO BE TAKEN. EDUCATED PT. ON RISK VS BENEFIT. PT. VERBALIZED UNDERSTANDING AND CONTINUES TO REFUSE. WILL CONTINUE TO MONITOR.
[2019-08-13] VITALS: BP 122/67
[2019-08-13] MEDS: IPRATROPIUM NEB FS 0.5 MG/2.5 ML AMPUL.NEB NEB SCH ×4 (01:29→20:19)
[2019-08-13] MEDS: SUCRALFATE 1 G/10 ML UDC NG SCH ×4 (02:36→20:48)
[2019-08-13 04:00] VITALS: BP 123/64
[2019-08-13 06:16] LABS: BASOPHILS % (AUTO) 0.3 % (0.0-2.0); EOSINOPHILS % (AUTO) 1.6 % (0.0-6.0); HEMATOCRIT 28 % (39-51); HEMOGLOBIN 9.3 g/dL (13.5-17.5); LYMPHOCYTES # (AUTO) 1.2 /CMM (0.8-4.8); MEAN CORPUSCULAR HGB CONC 34 g/dl (31.0-36.0); MEAN CORPUSCULAR VOLUME 94 fL (80-96); MONOCYTES # (AUTO) 0.4 /CMM (0.1-1.30); MONOCYTES % (AUTO) 6.7 % (2.0-12.0); NEUTROPHILS # (AUTO) 3.6 /CMM (1.8-8.9); NEUTROPHILS % (AUTO) 69.4 % (43.0-81.0); PLATELET COUNT (AUTO) 136 /CMM (150-450); RED BLOOD CELL COUNT(AUTO) 2.95 MIL/uL (4.5-6.0); WHITE BLOOD COUNT (AUTO) 5.2 K/uL (4.3-11.0)
[2019-08-13] MEDS: PIPERACILLIN /TAZOBACTAM 3.375 G in IV D5W 100 ML IV SCH ×3 (06:19→22:01)
[2019-08-13 06:21] LABS: CALCIUM, SERUM 7.6 mg/dL (8.5-10.1); CREATININE 0.8 mg/dL (0.6-1.3); POTASSIUM 3.4 mmol/L (3.5-5.1)
--- NOTE | 2019-08-13 06:35 | NUR ---
TELE/RN NOTES PT. IS LYING IN BED RESTING. BREATHING EVEN AND UNLABORED ON 4LPM O2 VIA NC. NO SOB, RESPIRATORY DISTRESS OR COMPLAINTS OF PAIN NOTED AT THIS TIME AND THROUGHOUT SHIFT. PT. WITH EXTERNAL RECEIVER PRESENT AND INTACT. CURRENT RHYTHM = SINUS RHYTHM WITH BBB HR 79. PT. WITH LEFT UPPER ARM MIDLINE PRESENT, PATENT AND INTACT ADMINISTERING TO PT. SCHEDULED ZOSYN ORDERED. PT. WITH LEFT AC 20 GAUGE IV SALINE LOCK PRESENT, PATENT AND INTACT. ALL PT. NEEDS MET. PT. REFUSED PHOTOS THROUGHOUT SHIFT. EDUCATED PT. ON RISK VS BENEFIT. PT. VERBALIZED UNDERSTANDING AND CONTINUES TO REFUSE. PT. WITH FAMILY MEMBER PRESENT AT BEDSIDE. BED LOCKED AND IN LOWEST POSITION, SIDE RAILS UP X2, CALL LIGHT WITHIN REACH, WILL ENDORSE TO DAYSAZFT NURSE FOR CONTINUITY OF CARE.
[2019-08-13 07:18] LABS: OCCULT BLOOD STOOL POSITIVE (NEGATIVE)
--- NOTE | 2019-08-13 07:25 | NUR ---
BOOK SEWER OPENING NOTES RECEIVED PATIENT IN BED, ASLEEP. AROUSABLE TO VERBAL AND TACTILE STIMULI. ALERT AND ORIENTED X4 KHMER SPEAKING WITH DAUGHTER AT BEDSIDE. NO SOB. HOB ELEVATED. ON TELE MONITORING SINUS RHYTHM WITH EVENTS OF COUPLETS AT RATE OF 81. HOB ELEVATED. NO SOB. DENIES ANY PAIN NOR DISCOMFORT. CALL LIGHT WITHIN REACH. BED ALARM ON. BED IN LOWEST POSITION, LOCKED.
[2019-08-13] MEDS: ACETYLCYSTEINE 10% SOLN 400 MG/4 ML VIAL NEB SCH ×2 (07:35→15:14)
[2019-08-13 08:17] VITALS: BP 139/74
[2019-08-13] MEDS ORDERED: POTASSIUM CHLORIDE 20 MEQ TAB.PRT.SR PO ONE (08:30)
[2019-08-13] MEDS ORDERED: AMIODARONE HCL 200 MG TABLET PO SCH (09:00)
[2019-08-13] MEDS: FUROSEMIDE 40 MG TABLET PO SCH (09:11)
[2019-08-13] MEDS: PANTOPRAZOLE 40 MG VIAL IV SCH (09:11)
[2019-08-13] MEDS: FOLIC ACID 1 MG TABLET PO SCH (09:12)
[2019-08-13] MEDS: METOPROLOL TARTRATE 25 MG TABLET PO SCH ×2 (09:12→21:52)
[2019-08-13] MEDS: LOSARTAN POTASSIUM 50 MG TABLET PO SCH (09:12)
[2019-08-13] MEDS: ENSURE ENLIVE 237 ML LIQUID (VANILLA) PO SCH ×2 (09:12→17:23)
[2019-08-13] MEDS: POTASSIUM CHLORIDE 20 MEQ TAB.PRT.SR PO SCH (09:51)
--- NOTE | 2019-08-13 11:00 | NUR ---
FRONT OFFICE ASSOCIATE NOTES PATIENT SEEN BY PHYSICAL THERAPY. PATIENT WITH WEAKNESS OBSERVED, ABLE TO TOLERATE SIT TO STAND. PATIENT REMAINS SITTING UP IN CHAIR. DAUGHTER AT SIDE.
[2019-08-13 16:22] VITALS: BP 129/66
[2019-08-13] MEDS: HYDROCODONE/APAP 5/325MG 1 EACH TABLET PO PRN (18:53)
--- NOTE | 2019-08-13 18:55 | NUR ---
INFECTION CONTROL NURSE CLOSING NOTES ALERT AND ORIENTED X4 SPANISH SPEAKING. DAUGHTER AT BEDSIDE. NO SOB. NO COUGHING OBSERVED DURING MEAL INTAKE AND FLUID INTAKE. BRENT THIN LIQUIDS WELL WITHOUT S/S OF COMPLICATIONS. HOB ELEVATED. REMAIN ON TELE MONITORING SINUS RHYTHM. HOB ELEVATED. PATIENT WAS UP IN CHAIR DURING THE SHIFT WIHTOUT PROBLEMS. DENIES ANY PAIN NOR DISCOMFORT. RESTING COMFORTABLY IN BED. CALL LIGHT WITHIN REACH. BED ALARM ON. BED IN LOWEST POSITION, LOCKED.IN NO APPARENT DISTRESS.
--- NOTE | 2019-08-13 19:30 | NUR ---
TELE/RN NOTES RECEIVED PT. LYING IN BED. PT. IS AWAKE, ALERT AND ORIENTED X3. BREATHING EVEN AND UNLABORED ON 3LPM O2 VIA NC. NO SOB, RESPIRATORY DISTRESS OR COMPLAINTS OF PAIN NOTED AT THIS TIME. PT. WITH EXTERNAL GAS ATTENDANT PRESENT AND INTACT. CURRENT RHYTHM = SINUS RHYTHM WITH BBB HR 83. PT. WITH RIGHT UPPER ARM MIDLINE PRESENT, PATENT AND INTACT. PT. WITH LEFT AC 20 GAUGE IV SALINE LOCK PRESENT, PATENT AND INTACT. PT. WITH SY CATHETER PRESENT, PATENT AND INTACT DRAINING CLEAR YELLOW URINE. PT. WITH FAMILY MEMBER PRESENT AT BEDSIDE. BED LOCKED AND IN LOWEST POSITION, SIDE RAILS UP X2, CALL LIGHT WITHIN REACH, WILL CONTINUE TO MONITOR.
[2019-08-13 20:48] VITALS: BP 126/66
[2019-08-13] MEDS ORDERED: PANTOPRAZOLE 40 MG VIAL IV SCH (21:00)
[2019-08-13] MEDS: TAMSULOSIN 0.4 MG CAP.SR.24H PO SCH (21:52)
[2019-08-13] MEDS: ATORVASTATIN 40 MG TABLET PO SCH (21:52)
[2019-08-14 00:01] VITALS: BP 117/72
[2019-08-14] MEDS: ACETYLCYSTEINE 10% SOLN 400 MG/4 ML VIAL NEB SCH ×4 (01:16→23:52)
[2019-08-14] MEDS: IPRATROPIUM NEB FS 0.5 MG/2.5 ML AMPUL.NEB NEB SCH ×4 (01:16→19:53)
[2019-08-14] MEDS: SUCRALFATE 1 G/10 ML UDC NG SCH ×4 (01:51→20:25)
[2019-08-14 04:00] VITALS: BP 118/72
--- NOTE | 2019-08-14 06:29 | NUR ---
TELE/RN NOTES PT. IS LYING IN BED RESTING. BREATHING EVEN AND UNLABORED ON 3LPM O2 VIA NC. NO SOB, RESPIRATORY DISTRESS OR COMPLAINTS OF PAIN NOTED AT THIS TIME AND THROUGHOUT SHIFT. PT. WITH EXTERNAL SHUTTLE VENEERING SUPERVISOR PRESENT AND INTACT. CURRENT RHYTHM = SINUS RHYTHM WITH BBB HR 82. PT. WITH RIGHT UPPER ARM MIDLINE PRESENT, PATENT AND INTACT. PT. WITH LEFT AC 20 GAUGE IV SALINE LOCK PRESENT, PATENT AND INTACT. PT. WITH SY CATHETER PRESENT, PATENT AND INTACT DRAINING CLEAR YELLOW URINE. PT. WITH FAMILY MEMBER PRESENT AT BEDSIDE. ALL PT. NEEDS MET. NO BM NOTED THROUGHOUT SHIFT. PT. REFUSING BED BATH THROUGHOUT SHIFT. BED LOCKED AND IN LOWEST POSITION, SIDE RAILS UP X2, CALL LIGHT WITHIN REACH, WILL ENDORSE TO DAYSHIFT NURSE FOR CONTINUITY OF CARE.
[2019-08-14 06:38] LABS: CALCIUM, SERUM 7.8 mg/dL (8.5-10.1); CREATININE 0.8 mg/dL (0.6-1.3); POTASSIUM 3.6 mmol/L (3.5-5.1)
[2019-08-14 06:43] LABS: BASOPHILS % (AUTO) 0.3 % (0.0-2.0); EOSINOPHILS % (AUTO) 2.5 % (0.0-6.0); HEMATOCRIT 29 % (39-51); HEMOGLOBIN 9.5 g/dL (13.5-17.5); LYMPHOCYTES # (AUTO) 1.1 /CMM (0.8-4.8); LYMPHOCYTES % (AUTO) 21.6 % (20.0-44.0); MEAN CORPUSCULAR HGB CONC 33 g/dl (31.0-36.0); MEAN CORPUSCULAR VOLUME 94 fL (80-96); MONOCYTES # (AUTO) 0.4 /CMM (0.1-1.30); MONOCYTES % (AUTO) 7.1 % (2.0-12.0); NEUTROPHILS # (AUTO) 3.6 /CMM (1.8-8.9); NEUTROPHILS % (AUTO) 68.5 % (43.0-81.0); PLATELET COUNT (AUTO) 141 /CMM (150-450); RED BLOOD CELL COUNT(AUTO) 3.08 MIL/uL (4.5-6.0); WHITE BLOOD COUNT (AUTO) 5.3 K/uL (4.3-11.0)
[2019-08-14] MEDS: PIPERACILLIN /TAZOBACTAM 3.375 G in IV D5W 100 ML IV SCH ×3 (06:52→22:59)
--- NOTE | 2019-08-14 07:30 | NUR ---
RN MS NOTES PT IN BED, AWAKE, ALERT AND ORIENTED, NO COMPLAINT OF PAIN OR ANY DISCOMFORT AT THIS TIME, RESPIRATIONS NORMAL, NOT IN DISTRESS, FAMILY AT BEDSIDE, F/C DRAINING WELL WITH CLEAR, YELLOW URINE, CALL LIGHT WITHIN REACH.
[2019-08-14 08:00] VITALS: BP 148/73
--- NOTE | 2019-08-14 08:45 | NUR ---
RN NOTE RECEIVED ORDER FROM DR TINOCO TO DISCONTINUE TELE AND TRANSFER THE PATIENT TO MS.
[2019-08-14] MEDS: LOSARTAN POTASSIUM 50 MG TABLET PO SCH (09:21)
[2019-08-14] MEDS: ENSURE ENLIVE 237 ML LIQUID (VANILLA) PO SCH ×2 (09:22→16:36)
[2019-08-14] MEDS: METOPROLOL TARTRATE 25 MG TABLET PO SCH ×2 (09:22→20:26)
[2019-08-14] MEDS: FUROSEMIDE 40 MG TABLET PO SCH (09:22)
[2019-08-14] MEDS: FOLIC ACID 1 MG TABLET PO SCH (09:22)
[2019-08-14] MEDS: POTASSIUM CHLORIDE 20 MEQ TAB.PRT.SR PO SCH (09:22)
[2019-08-14] MEDS: PANTOPRAZOLE 40 MG TABLET.DR PO SCH ×2 (09:26→20:25)
--- NOTE | 2019-08-14 09:40 | NUR ---
RN MS NOTES PT SEEN AND EXAMINED BY DR. BOYD, PLAN OF CARE DISCUSSED WITH PT AND SON AT BEDSIDE, VERBALIZED UNDERSTANDING, ASSISTED PT TO CHAIR, TOLERATED WELL, SAFETY PRECAUTIONS OBSERVED.
[2019-08-14] MEDS: ACETAMINOPHEN 650 MG/20.3 ML UDC NG PRN ×2 (10:28→20:26)
[2019-08-14] MEDS: HYDROCODONE/APAP 5/325MG 1 EACH TABLET PO PRN (10:46)
--- NOTE | 2019-08-14 13:00 | NUR ---
RN MS NOTES PT ABLE TO TRANSFER FROM BED TO CHAIR AND WALKED STEPS WITH PHYSICAL THERAPY, TOLERATED WELL, SAT ON HIS CHAIR FOR A WHILE.
[2019-08-14 16:19] VITALS: BP 127/65
--- NOTE | 2019-08-14 18:04 | NUR ---
RN MS NOTES PT IN BED, RESTING, NO COMPLAINT OF PAIN AT THIS TIME, RESPIRATIONS NORMAL, CALL LIGHT WITHIN REACH, ASSISTED WITH ADL'S, TOLERATING CURRENT DIET WELL, PM MEDS GIVEN ORDERED, ALL NEEDS ATTENDED.
--- NOTE | 2019-08-14 19:25 | NUR ---
MS/RN NOTES RECEIVED PT. LYING IN BED. PT. IS AWAKE, ALERT AND ORIENTED X3. BREATHING EVEN AND UNLABORED ON 4LPM O2 VIA NC. NO SOB, RESPIRATORY DISTRESS OR COMPLAINTS OF PAIN NOTED AT THIS TIME. PT. WITH RIGHT UPPER ARM MIDLINE PRESENT, PATENT AND INTACT. PT. WITH LEFT AC 20 GAUGE IV SALINE LOCK PRESENT, PATENT AND INTACT. PT. WITH SY CATHETER PRESENT, PATENT AND INTACT DRAINING CLEAR YELLOW URINE. PT. WITH FAMILY MEMBER PRESENT AT BEDSIDE. BED LOCKED AND IN LOWEST POSITION, SIDE RAILS UP X2, CALL LIGHT WITHIN REACH, WILL CONTINUE TO MONITOR.
[2019-08-14 20:00] VITALS: BP 142/79
[2019-08-14] MEDS: TAMSULOSIN 0.4 MG CAP.SR.24H PO SCH (22:59)
[2019-08-14] MEDS: ATORVASTATIN 40 MG TABLET PO SCH (22:59)
[2019-08-15] MEDS: IPRATROPIUM NEB FS 0.5 MG/2.5 ML AMPUL.NEB NEB SCH ×3 (01:54→13:34)
[2019-08-15] MEDS: SUCRALFATE 1 G/10 ML UDC NG SCH ×3 (02:49→14:02)
[2019-08-15] MEDS: ACETAMINOPHEN 650 MG/20.3 ML UDC NG PRN (05:05)
--- NOTE | 2019-08-15 06:27 | NUR ---
MS/RN NOTES PT. IS LYING IN BED RESTING. BREATHING EVEN AND UNLABORED ON 4LPM O2 VIA NC. NO SOB, RESPIRATORY DISTRESS OR COMPLAINTS OF PAIN NOTED AT THIS TIME. PT. WITH RIGHT UPPER ARM MIDLINE PRESENT, PATENT AND INTACT. PT. WITH LEFT AC 20 GAUGE IV SALINE LOCK PRESENT, PATENT AND INTACT. PT. WITH SY CATHETER PRESENT, PATENT AND INTACT DRAINING CLEAR YELLOW URINE. ALL PT. NEEDS MET. PT. WITH FAMILY MEMBER PRESENT AT BEDSIDE. BED LOCKED AND IN LOWEST POSITION, SIDE RAILS UP X2, CALL LIGHT WITHIN REACH, [facility] OF [facility].
[2019-08-15 06:32] LABS: BASOPHILS % (AUTO) 0.6 % (0.0-2.0); EOSINOPHILS % (AUTO) 3.2 % (0.0-6.0); HEMATOCRIT 30 % (39-51); LYMPHOCYTES % (AUTO) 21.9 % (20.0-44.0); MEAN CORPUSCULAR HGB CONC 33 g/dl (31.0-36.0); MEAN CORPUSCULAR VOLUME 94 fL (80-96); MONOCYTES # (AUTO) 0.4 /CMM (0.1-1.30); MONOCYTES % (AUTO) 9.2 % (2.0-12.0); NEUTROPHILS # (AUTO) 2.9 /CMM (1.8-8.9); NEUTROPHILS % (AUTO) 65.1 % (43.0-81.0); PLATELET COUNT (AUTO) 145 /CMM (150-450); RED BLOOD CELL COUNT(AUTO) 3.22 MIL/uL (4.5-6.0); WHITE BLOOD COUNT (AUTO) 4.4 K/uL (4.3-11.0)
[2019-08-15] MEDS: PIPERACILLIN /TAZOBACTAM 3.375 G in IV D5W 100 ML IV SCH ×2 (06:45→14:02)
[2019-08-15 07:14] LABS: CALCIUM, SERUM 8.4 mg/dL (8.5-10.1); CREATININE 0.9 mg/dL (0.6-1.3); POTASSIUM 3.6 mmol/L (3.5-5.1)
--- NOTE | 2019-08-15 07:30 | NUR ---
RN MS NOTES PT IN BED, AWAKE, ALERT AND ORIENTED, NO COMPLAINT AT THIS TIME, RESPIRATIONS NORMAL, CALL LIGHT WITHIN REACH, DAUGHTER AT BEDSIDE, KEPT PT COMFORTABLE AND SANDWICH ARTIST BED.
[2019-08-15] MEDS: ACETYLCYSTEINE 10% SOLN 400 MG/4 ML VIAL NEB SCH ×2 (07:36→16:31)
[2019-08-15 08:00] VITALS: BP 126/74
[2019-08-15] MEDS: FUROSEMIDE 40 MG TABLET PO SCH (08:45)
[2019-08-15] MEDS: ENSURE ENLIVE 237 ML LIQUID (VANILLA) PO SCH ×2 (08:45→16:59)
[2019-08-15] MEDS: PANTOPRAZOLE 40 MG TABLET.DR PO SCH (08:45)
[2019-08-15] MEDS: POTASSIUM CHLORIDE 20 MEQ TAB.PRT.SR PO SCH (08:45)
[2019-08-15] MEDS: FOLIC ACID 1 MG TABLET PO SCH (08:45)
[2019-08-15] MEDS: LOSARTAN POTASSIUM 50 MG TABLET PO SCH (08:46)
[2019-08-15] MEDS: METOPROLOL TARTRATE 25 MG TABLET PO SCH (08:46)
--- NOTE | 2019-08-15 09:37 | NUR ---
RN MS NOTES PT SEEN AND EXAMINED BY DR. BOYD, PLAN OF CARE DISCUSSED WITH PT, VERBALIZED UNDERSTANDING, PT ABLE TO WALK WITH A WALKER WITH ASSISTANCE WITH A WALKER ALONG THE HALLWAY, TOLERATED WELL, ASSISTED TO CHAIR, NO COMPLAINT AT THIS TIME.
--- NOTE | 2019-08-15 09:39 | NUR ---
RN MS NOTES PT SEEN BY AND EXAMINED BY DR. CONTRERAS, PLAN OF CARE DISCUSSED WITH PT AND DAUGHTER AT BEDSIDE, VERBALIZED UNDERSTANDING.
[2019-08-15] MEDS ORDERED: SUCR1ORA6 NG (09:40)
[2019-08-15] MEDS ORDERED: FURO40TA5 PO (09:40)
[2019-08-15] MEDS ORDERED: LOSA50TA3 PO (09:40)
[2019-08-15] MEDS ORDERED: AMOX-430 PO (09:40)
[2019-08-15] MEDS ORDERED: CLOP75TA15 PO (09:40)
[2019-08-15] MEDS ORDERED: PANT40TA2 PO (09:40)
[2019-08-15] MEDS ORDERED: FERR325T24 PO (09:42)
[2019-08-15] MEDS ORDERED: POTA10TA PO (09:44)
[2019-08-15 16:00] VITALS: BP 131/71
--- NOTE | 2019-08-15 18:00 | NUR ---
RN MS NOTES PT IN BED, AWAKE, ALERT AND ORIENTED, NO COMPLAINT OF PAIN, RESPIRATIONS NORMAL, CALL LIGHT WITHIN REACH, FAMILY AT BEDSIDE, DISCHARGE ORDER GIVEN BY DR. BOYD, DISCHARGE AND MEDICATION INSTRUCTIONS PROVIDED TO PT AND SON JED, VERBALIZED UNDERSTANDING, NEW PRESCRIPTION FAXED TO PT'S OWN PHARMACY, BELONGINGS ACCOUNTED FOR, FAMILY REFUSED SKIN CHECK AND PHOTOS ON DISCHARGE, PER MICHAEL ADKINS IT IS NOT NECESSARY, ANGER CONTROL COUNSELOR ABDIRAHMAN SET UP PT'S HOME HEALTH WITH [facility], REGIONAL AGRONOMIST ASSISTED PT TO HOSPITAL LOBBY VIA WHEELCHAIR, LEFT VIA PRIVATE CAR WITH FAMILY IN STABLE CONDITION.
== END 2019-08-15 18:00 | disposition home health service (06) | DRG 241 ==
LOC: ER 01:44 → TELE1 05:09 → ICU 06:56 → MED 08-10 21:19 → TELE 08-10 21:23 → MED 08-14 09:14
PROVIDERS: ADMIT Internal Medicine; ATTEND Internal Medicine
PROC: 30233K1 Transfusion of Nonautologous Frozen Plasma into Peripheral Vein, Percutaneous Approach (ICD-10-PCS; principal; 2019-08-07)
PROC: 0BH17EZ Insertion of Endotracheal Airway into Trachea, Via Natural or Artificial Opening (ICD-10-PCS; principal; 2019-08-07)
PROC: 5A1945Z Respiratory Ventilation, 24-96 Consecutive Hours (ICD-10-PCS; 2019-08-07)
PROC: 5A12012 Performance of Cardiac Output, Single, Manual (ICD-10-PCS; 2019-08-07)
PROC: 05H533Z Insertion of Infusion Device into Right Subclavian Vein, Percutaneous Approach (ICD-10-PCS; 2019-08-07)
PROC: 0DB68ZX Excision of Stomach, Via Natural or Artificial Opening Endoscopic, Diagnostic (ICD-10-PCS; 2019-08-08)
PROC: 0DJD8ZZ Inspection of Lower Intestinal Tract, Via Natural or Artificial Opening Endoscopic (ICD-10-PCS; 2019-08-08)
PROC: 30233N1 Transfusion of Nonautologous Red Blood Cells into Peripheral Vein, Percutaneous Approach (ICD-10-PCS; 2019-08-08)
PROC: 3E0G8GC Introduction of Other Therapeutic Substance into Upper GI, Via Natural or Artificial Opening Endoscopic (ICD-10-PCS; 2019-08-08)
DX: K26.4 Chronic or unspecified duodenal ulcer with hemorrhage (principal); I46.9 Cardiac arrest, cause unspecified; N17.0 Acute kidney failure with tubular necrosis; J96.90 Respiratory failure, unspecified, unspecified whether with hypoxia or hypercapnia; R57.8 Other shock; J69.0 Pneumonitis due to inhalation of food and vomit; I95.9 Hypotension, unspecified; D68.9 Coagulation defect, unspecified; D62 Acute posthemorrhagic anemia; D69.59 Other secondary thrombocytopenia; I25.10 Atherosclerotic heart disease of native coronary artery without angina pectoris; R55 Syncope and collapse; K25.9 Gastric ulcer, unspecified as acute or chronic, without hemorrhage or perforation; E78.5 Hyperlipidemia, unspecified; E86.1 Hypovolemia; E87.6 Hypokalemia; F17.210 Nicotine dependence, cigarettes, uncomplicated; I10 Essential (primary) hypertension; Z95.5 Presence of coronary angioplasty implant and graft; Z95.1 Presence of aortocoronary bypass graft; J44.9 Chronic obstructive pulmonary disease, unspecified; Z87.11 Personal history of peptic ulcer disease; I44.30 Unspecified atrioventricular block; K21.9 Gastro-esophageal reflux disease without esophagitis; K64.8 Other hemorrhoids; N40.0 Benign prostatic hyperplasia without lower urinary tract symptoms; Z86.79 Personal history of other diseases of the circulatory system; Z79.82 Long term (current) use of aspirin; R74.0 Nonspecific elevation of levels of transaminase and lactic acid dehydrogenase [LDH]; K29.70 Gastritis, unspecified, without bleeding; R79.89 Other specified abnormal findings of blood chemistry
CPT/HCPCS: 31720; 36415; 36569; 36600; 71045-TC; 74018; 80048-TC; 80053-TC; 80076-TC; 82272-TC; 82803-TC; 82962-TC; 83010; 83615-TC; 83735-TC; 83880; 84484-TC; 85025-TC; 85027-TC; 85045-TC; 85378-TC; 85396; 85610-TC; 85730-TC; 86850-TC; 86880-TC; 86921-TC; 87081-TC; 88305-TC; 88313-TC; 88342; 92526; 92611-TC; 92950-TC; 93307-TC; 94002-TC; 94003-TC; 94760-TC; 94799-TC; 97110-TC; 97112-TC; 97116-TC; 97530-TC; A6403; C1751; C9113; G0378; J0171; J0461; J0885; J1200; J1566; J1940; J2370; J2405; J2543; J2704; J2916; J2920; J2930; J3480; J3490; J7030; J7040; J7050; J7060; P9016-BL; P9017-BL